=== PATIENT | male | born 1965 | race Caucasian/White ===

== ENCOUNTER → 2017-08-11 11:32 | Outpatient (CLI) | payer OTHER, SELFPAY ==
--- NOTE | 2017-08-11 11:56 | EKG12_ITS ---
Test Reason : PROP Blood Pressure : / mmHG Vent. Rate : 078 BPM Atrial Rate : 078 BPM P-R Int : 182 ms QRS Dur : 096 ms QT Int : 364 ms P-R-T Axes : -04 [phone] degrees QTc Int : 414 ms Normal sinus rhythm Normal ECG Confirmed by SALIMA LUIS, RU [id number]), online editor JANES WRAY ([id number] on 08/16/2017 8:30:41 AM Referred By: Hollis KELLY Confirmed By:RU BORREGO MD
[2017-08-11 13:04] LABS: Anion Gap 9 (5-15); BUN 20 mg/dL (7-18); BUN/Creat Ratio 18.5 RATIO (10-20); Calcium,Total 9.5 mg/dL (8.5-10.1); Chloride 100 mmol/L (98-107); Creatinine, Serum 1.08 mg/dL (0.70-1.30); EST Glomerular Filtration Rate 76 mL/min (>60); Est Glom Filt Rate - Afr Amer 92 mL/min (>60); Glucose 246 mg/dL (70-110); Potassium 4.4 mmol/L (3.5-5.1); Sodium Level 137 mmol/L (136-145)
== END ==
PROVIDERS: Family Provider Family Medicine; PCP Family Medicine; Visit Provider Orthopaedic Surgery
DX: Z01.812 Encounter for preprocedural laboratory examination (principal); I10 Essential (primary) hypertension; E11.9 Type 2 diabetes mellitus without complications; S83.241A Other tear of medial meniscus, current injury, right knee, initial encounter; X58.XXXA Exposure to other specified factors, initial encounter; Y93.9 Activity, unspecified; Y92.9 Unspecified place or not applicable; Y99.9 Unspecified external cause status
CPT/HCPCS: 36415; 80048; 93005

== ENCOUNTER → 2018-07-21 16:05 | Outpatient (CLI) | payer OTHER, SELFPAY ==
[2016-04-14 22:45] VITALS: BMI 41.4
[2018-07-21 18:15] LABS: AST(SGOT) 12 U/L (15-37); Alanine Aminotransfer ALT/SGPT 26 U/L (16-61); Alkaline Phosphatase 122 U/L (45-117); Anion Gap 10 (5-15); BUN 24 mg/dL (7-18); BUN/Creat Ratio 16.8 RATIO (10-20); Calcium,Total 9.3 mg/dL (8.5-10.1); Chloride 101 mmol/L (98-107); Cholesterol 173 mg/dL (200); Creatinine, Serum 1.43 mg/dL (0.70-1.30); EST Glomerular Filtration Rate 55 mL/min (>60); Est Glom Filt Rate - Afr Amer 66 mL/min (>60); Glucose 230 mg/dL (74-106); High Density Lipoprotein 48 mg/dL; Sodium Level 136 mmol/L (136-145); Triglycerides 252 mg/dL; Very Low Density Lipoprotein 50 mg/dL (5-40)
[2018-07-21 18:27] LABS: Microalbumin,Random Urine 5.9 mg/L (NO RANGE EST.); Microalbumin:Creatinine Ratio 23.3 mg/g CRE (<30 mg/g CRE)
== END ==
PROVIDERS: Family Provider Family Medicine; PCP Family Medicine; Visit Provider Family Medicine
DX: E11.9 Type 2 diabetes mellitus without complications (principal)
CPT/HCPCS: 36415; 80048; 80061; 80076; 82043; 82570

== ENCOUNTER → 2019-10-29 09:40 | Outpatient (CLI) | payer OTHER, SELFPAY ==
[2016-04-14 22:45] VITALS: BMI 41.4
[2019-10-29 12:15] LABS: AST(SGOT) 18 U/L (15-37); Alanine Aminotransfer ALT/SGPT 27 U/L (16-61); Albumin, Serum 3.5 g/dL (3.2-5.0); Alkaline Phosphatase 109 U/L (45-117); Anion Gap 7 (5-15); BUN 23 mg/dL (7-18); BUN/Creat Ratio 19.5 RATIO (10-20); Bilirubin, Direct 0.17 mg/dL (0.00-0.30); Calcium,Total 9.9 mg/dL (8.5-10.1); Chloride 102 mmol/L (98-107); Cholesterol 138 mg/dL (200); Creatinine, Serum 1.18 mg/dL (0.70-1.30); EST Glomerular Filtration Rate 68 mL/min (>60); Est Glom Filt Rate - Afr Amer 82 mL/min (>60); Globulin 3.3 g/dL (2.2-4.2); Glucose 318 mg/dL (74-106); High Density Lipoprotein 39 mg/dL; Potassium 3.6 mmol/L (3.5-5.1); Protein, Total 6.8 g/dL (6.4-8.2); Sodium Level 137 mmol/L (136-145); Triglycerides 221 mg/dL; Very Low Density Lipoprotein 44 mg/dL (5-40)
== END ==
PROVIDERS: PCP Family Medicine; Referring Provider Family Medicine; Visit Provider Family Medicine
DX: E11.9 Type 2 diabetes mellitus without complications (principal)
CPT/HCPCS: 36415; 80048; 80061; 80076

== ENCOUNTER → 2020-08-04 15:00 | Outpatient (CLI) | payer OTHER, SELFPAY ==
[2020-08-04 11:04] VITALS: BMI 43.7
[2020-08-04 18:22] LABS: AST(SGOT) 16 U/L (15-37); Alanine Aminotransfer ALT/SGPT 25 U/L (16-61); Anion Gap 6 (5-15); BUN 21 mg/dL (7-18); BUN/Creat Ratio 16.4 RATIO (10-20); Calcium,Total 9.3 mg/dL (8.5-10.1); Chloride 100 mmol/L (98-107); Cholesterol 174 mg/dL (200); Creatinine, Serum 1.28 mg/dL (0.70-1.30); EST Glomerular Filtration Rate 62 mL/min (>60); Est Glom Filt Rate - Afr Amer 75 mL/min (>60); Glucose 219 mg/dL (74-106); High Density Lipoprotein 54 mg/dL; Potassium 3.9 mmol/L (3.5-5.1); Sodium Level 134 mmol/L (136-145); Triglycerides 142 mg/dL; Very Low Density Lipoprotein 28 mg/dL (5-40)
== END ==
PROVIDERS: PCP Family Medicine; Visit Provider Family Medicine
DX: I10 Essential (primary) hypertension (principal); E78.5 Hyperlipidemia, unspecified
CPT/HCPCS: 36415; 80048; 80061; 84450; 84460

== ENCOUNTER → 2021-06-26 14:13 | Outpatient (CLI) | payer OTHER, SELFPAY ==
[2021-06-26 18:04] LABS: AST(SGOT) 16 U/L (15-37); Alanine Aminotransfer ALT/SGPT 26 U/L (16-61); Anion Gap 4 (5-15); BUN 28 mg/dL (7-18); BUN/Creat Ratio 20.4 RATIO (10-20); Calcium,Total 9.7 mg/dL (8.5-10.1); Chloride 104 mmol/L (98-107); Cholesterol 163 mg/dL (200); Creatinine, Serum 1.37 mg/dL (0.70-1.30); EST Glomerular Filtration Rate 57 mL/min (>60); Est Glom Filt Rate - Afr Amer 69 mL/min (>60); Glucose 242 mg/dL (74-106); High Density Lipoprotein 47 mg/dL; Potassium 3.9 mmol/L (3.5-5.1); Sodium Level 139 mmol/L (136-145); Triglycerides 140 mg/dL; Very Low Density Lipoprotein 28 mg/dL (5-40)
== END ==
PROVIDERS: PCP Family Medicine; Referring Provider Family Medicine; Visit Provider Family Medicine
DX: I10 Essential (primary) hypertension (principal); E78.5 Hyperlipidemia, unspecified
CPT/HCPCS: 36415; 80048; 80061; 84450; 84460

== ENCOUNTER → 2022-01-26 | Outpatient (CLI) | payer OTHER, SELFPAY ==
[2022-01-26 19:07] LABS: PSA,Total - Annual Screen 0.93 ng/mL (0.00-4.00)
== END | disposition home or self-care (01) ==
LOC: MFPLAB 16:19
PROVIDERS: PCP Family Medicine; Visit Provider Family Medicine
DX: Z00.00 Encounter for general adult medical examination without abnormal findings (principal)
CPT/HCPCS: 36415; 84153; G0103

== ENCOUNTER → 2022-07-26 | Outpatient (CLI) | payer OTHER, SELFPAY ==
[2022-07-26 18:54] LABS: Microalbumin,Random Urine 79.8 mg/L (NO RANGE EST.); Microalbumin:Creatinine Ratio 89.3 mg/g CRE (<30 mg/g CRE)
[2022-07-26 19:38] LABS: Anion Gap 8 (5-15); BUN 28 mg/dL (7-18); BUN/Creat Ratio 21.4 RATIO (10-20); Calcium,Total 9.6 mg/dL (8.5-10.1); Chloride 103 mmol/L (98-107); Cholesterol 164 mg/dL (200); Creatinine, Serum 1.31 mg/dL (0.70-1.30); EST Glomerular Filtration Rate 60 mL/min (>60); Est Glom Filt Rate - Afr Amer 72 mL/min (>60); Glucose 225 mg/dL (74-106); High Density Lipoprotein 51 mg/dL; Potassium 4.1 mmol/L (3.5-5.1); Sodium Level 140 mmol/L (136-145); Triglycerides 141 mg/dL; Very Low Density Lipoprotein 28 mg/dL (5-40)
== END | disposition home or self-care (01) ==
LOC: MFPLAB 16:02
PROVIDERS: PCP Family Medicine; Visit Provider Family Medicine
DX: I10 Essential (primary) hypertension (principal); E11.9 Type 2 diabetes mellitus without complications; E78.5 Hyperlipidemia, unspecified
CPT/HCPCS: 36415; 80048; 80061; 82043; 82570

== ENCOUNTER 2023-04-29 13:54 | Outpatient (CLI) | payer OTHER, SELFPAY ==
[2023-04-29 16:36] LABS: AST(SGOT) 10 U/L (15-37); Alanine Aminotransfer ALT/SGPT 23 U/L (16-61); Cholesterol 140 mg/dL (200); High Density Lipoprotein 48 mg/dL; PSA,Total - Annual Screen 1.28 ng/mL (0.00-4.00); Triglycerides 128 mg/dL; Very Low Density Lipoprotein 26 mg/dL (5-40)
== END 2023-04-29 23:59 | disposition home or self-care (01) ==
LOC: MFPLAB 13:55
PROVIDERS: PCP Family Medicine; Visit Provider Family Medicine
DX: Z12.5 Encounter for screening for malignant neoplasm of prostate (principal); E78.5 Hyperlipidemia, unspecified
CPT/HCPCS: 36415; 80061; 84153; 84450; 84460; G0103

== ENCOUNTER → 2023-08-26 | Outpatient (CLI) | payer OTHER, SELFPAY ==
[2023-08-26 17:02] LABS: Microalbumin,Random Urine 58.5 mg/L (NO RANGE EST.); Microalbumin:Creatinine Ratio 26.5 mg/g CRE (<30 mg/g CRE)
[2023-08-26 17:33] LABS: Vitamin D,25 Hydroxy 38.6 ng/mL
--- OUTSIDE RECORDS SUMMARY | 2023-08-26 17:35 | XMS RPT_ITS | CCD ---
Author Name Unknown Address [address] [place] [address] Organization [facility] Care Team Providers Care [employer] Worker Name Role Phone Debra Covington Primary Care Provider JELANI JAMISON Referring Unavailable DEBRA COVINGTON Primary Care Unavailable Allergies Allergy Classification Reported Allergen(s) Allergy Type Date of Onset Reaction(s) Facility (6 sources) Acetaminophen / HYDROcodone; Translations: [HYDROCODONE-ACETA MINOPHEN] Drug Allergy 2 Other: See Comments [facility] (6 sources) Acetaminophen / oxyCODONE; Translations: [OXYCODONE-ACETAMI NOPHEN] Drug Allergy 2 Other: See Comments [facility] (6 sources) Ramipril; Translations: [RAMIPRIL] Drug Allergy 2 Cough [facility] Medications Completed/Discontinued Medications Medication Drug Class(es) Dates Sig (Normalized) Sig (Original) aspirin 81 mg delayed release oral tablet (5 sources) Platelet Aggregation Inhibitor, Nonsteroidal Anti-inflammatory Drug take 1 tablet by mouth once daily aspirin, enteric coated (ASPIRIN, ENTERIC COATED) 81 mg EC tablet Take 81 mg by mouth once daily. 0 Active Problems Problem Classification Problem Date Documented Da te Episodic/Chronic Diabetes mellitus with complications (1 source) Type 2 diabetes mellitus; Translations: [Type 2 diabetes mellitus with other specified complication] Chronic Diabetes mellitus without complication (5 sources) Diabetes mellitus; Translations: [Type 2 diabetes mellitus without complications] 01-06-2022 Chronic Disorders of lipid metabolism (6 sources) Hyperlipidemia; Translations: [Hyperlipidemia, unspecified] Chronic Essential hypertension (6 sources) Hypertensive disorder; Translations: [Essential (primary) hypertension] Chronic Other diseases of kidney and ureters (6 sources) Abnormal renal function; Translations: [Disorder of kidney and ureter, unspecified] Episodic Other nutritional; endocrine; and metabolic disorders (6 sources) Morbid obesity; Translations: [Morbid (severe) obesity due to excess calories] Chronic Other screening for suspected conditions (not mental disorders or infectious disease) (4 sources) Patient encounter status; Translations: [Encounter for screening for malignant neoplasm of colon] Episodic Residual codes; unclassified (6 sources) Obstructive sleep apnea syndrome; Translations: [Obstructive sleep apnea (adult) (pediatric)] Chronic Results Test Name Value Interpretation Reference Range Facil ity Vital Signs Date Time Vital Sign Value Performing Clinician Faci lity 01-20-2022 09:00-0400 Diastolic blood pressure 71 mm[Hg] Jelani Jamison MD Work Phone: [facility] 01-20-2022 09:00-0400 Heart rate 81 /min Jelani Jamison MD Work Phone: [facility] 01-20-2022 09:00-0400 Respiratory rate 15 /min Jelani Jamison MD Work Phone: [facility] 01-20-2022 09:00-0400 SaO2% (BldA) [Mass fraction] 95 % Jelani Jamison MD Work Phone: [facility] 01-20-2022 09:00-0400 Systolic blood pressure 153 mm[Hg] Jelani Jamison MD Work Phone: [facility] 01-20-2022 08:30-0400 Body temperature 98.2 [degF] Jelani Jamison MD Work Phone: [facility] 01-06-2022 11:11-0400 Body height 180.3 cm Pacc 1 Work Phone: [facility] 01-06-2022 11:11-0400 Body temperature 98.01 [degF] Pacc 1 Work Phone: [facility] 01-06-2022 11:11-0400 Body weight 151.5 kg Pacc 1 Work Phone: [facility] 01-06-2022 11:11-0400 Diastolic blood pressure 88 mm[Hg] Pacc 1 Work Phone: [facility] 01-06-2022 11:11-0400 Heart rate 80 /min Pacc 1 Work Phone: [facility] 01-06-2022 11:11-0400 Respiratory rate 16 /min Pacc 1 Work Phone: [facility] 01-06-2022 11:11-0400 SaO2% (BldA) [Mass fraction] 97 % Pacc 1 Work Phone: [facility] 01-06-2022 11:11-0400 Systolic blood pressure 164 mm[Hg] Pacc 1 Work Phone: [facility] Encounters Encounter Date Encounter Type Care Provider Facility Start: 01-26-2022 Telephone encounter Jelani bell MD Work Phone: General Surgery Procedures Date Procedure Procedure Detail Performing Clinician Start: 01-20-2022 Gluc bld gluc mntr d ev cleared fda spec home use Marybel Kandrac DIRECTOR WRITING.EMPLOYEE COMMUNICATIONS INTERN Work Phone: Start: 01-20-2022 Colon ca scrn not hi rsk ind Jelani Jamison MD Work Phone: Start: 01-20-2022 Gluc bld gluc mntr d ev cleared fda spec home use Marybel Kandrac DIRECTOR WRITING.EMPLOYEE COMMUNICATIONS INTERN Work Phone: Start: 01-20-2022 Colonoscopy Jelani celestin MD Work Phone: Plan of Treatment Date Care Activity Detail Author Start: 01-21-2032 Colonoscopy COLONOSCOPY [facility] Start: 01-21-2032 COLORECTAL CANCER SCREENING COLORECTAL CANCER SCREENING [facility] Start: 03-11-2023 Influenza vaccination INFLUENZA (Season Ended) [facility] Start: 01-20-2023 Colonoscopy COLONOSCOPY [facility] Start: 01-20-2023 COLORECTAL CANCER SCREENING COLORECTAL CANCER SCREENING [facility] Start: 07-11-2022 DEPRESSION ASSESSMENT DEPRESSION ASSESSMENT [facility] Start: 03-11-2022 Influenza vaccination INFLUENZA (#1) [facility] Start: 09-11-2021 COVID-19 VACCINE (4 - Booster for Pfizer series) COVID-19 VACCINE (4 - Booster for Pfizer series) [facility] Start: 07-09-2021 COVID-19 VACCINE (4 - Booster for Pfizer series) COVID-19 VACCINE (4 - Booster for Pfizer series) [facility] Start: 02-25-2019 PROSTATE CANCER SCREENING DISCUSSION PROSTATE CANCER SCREENING DISCUSSION [facility] Start: 02-25-2014 SHINGRIX VACCINE (1 of 2) SHINGRIX VACCINE (1 of 2) [facility] Start: 02-25-2009 COLOGUARD (FIT-DNA) COLOGUARD (FIT-DNA) [facility] Start: 02-25-2009 Colonoscopy COLONOSCOPY [facility] Start: 02-25-2009 COLORECTAL CANCER SCREENING COLORECTAL CANCER SCREENING [facility] Start: 02-25-[address] COLONOGRAPHY [facility] Start: 02-25-2009 FECAL OCCULT BLOOD FECAL OCCULT BLOOD [facility] Start: 02-25-2009 SIGMOIDOSCOPY SIGMOIDOSCOPY [facility] Start: 02-25-1983 HEPATITIS B (1 of 3 - Risk 3-dose series) HEPATITIS B (1 of 3 - Risk 3-dose series) [facility] Start: 02-25-1983 Urine microalbumin profile DTAP,TDAP,TD (1 - Tdap) [facility] Start: 02-25-1982 ANNUAL PCP TEAM CHRONIC DISEASE VISIT ANNUAL PCP TEAM CHRONIC DISEASE VISIT [facility] Start: 02-25-1982 BP CONTROLLED (<130/80) BP CONTROLLED (<130/80) [facility] Start: 02-25-1982 Hepatitis B surface antibody level LDL CHOLESTEROL [facility] Start: 02-25-1982 HEPATITIS C SCREENING HEPATITIS C SCREENING [facility] Start: 02-25-1982 HIV SCREENING HIV SCREENING [facility] Start: 1976 Adult depression screening assessment DEPRESSION SCREENING [facility] Start: 02-25-1974 3 comp foot exam completed DIABETIC FOOT EXAM [facility] Start: 02-25-1974 Hepatitis B screening URINE ALBUMIN:CREATININE RATIO [facility] Start: 02-25-1974 Hepatitis C antibody, confirmatory test DILATED RETINAL EXAM [facility] Start: 02-25-1970 PNEUMOCOCCAL (1 - PCV) PNEUMOCOCCAL (1 - PCV) [facility] Start: 02-25-1969 Hemoglobin A1c/Hemoglobin.total in Blood HBA1C [facility] Start: 1964 HEPATITIS B (1 of 3 - 3-dose series) HEPATITIS B (1 of 3 - 3-dose series) [facility] End: 01-07-2023 COLONOSCOPY DIAGNOSTIC COLONOSCOPY DIAGNOSTIC Endoscopy Routine Screening for colon cancer 1 Occurrences starting 01/07/2022 until 01/07/2023 [facility] Work Phone: Payers Date Payer Category Payer Private Health Insurance [facility] [employer] [id number] 2021-Present [phone] [address] [address] [place] [address] PPO [id number] 2021 Private Health Insurance [facility] CHO[employer] PLUS [id number] 2021-Present [phone] [address] [place] [address] HMO [id number] 2021 Private Health Insurance [id number] Social History Date Type Detail Facility Start: 12-03-2016 End: 01-06-2022 Tobacco smoking status NHIS Never smoked tobacco [facility] Work Phone: Start: 12-03-2016 End: 01-06-2022 Tobacco use and exposure Former smokeless tobacco user [facility] Work Phone: End: 01-07-2016 History of tobacco use User of smokeless tobacco [facility] Work Phone: Start: 10-20-2021 End: 01-06-2022 Alcohol intake Current non-drinker of alcohol (finding) [facility] Start: 1965 Sex Assigned At Not on file C [facility] Start: 12-27-2021 End: 01-20-2022 Exposure to SARS-CoV-2 (event) Not sure [facility] Clinical Notes 11-12-2021 to 01-27-2022 Telephone Encounter - Tosin Cortez PA-C - 01/27/2022 9:25 AM EDTTelephone Encounter - Miriam Tovar - 01/26/2022 5:14 PM Antoine Jamison MD - 01/20/2022 8:15 AM EDTPatient Instructions Note Date & Type Note Facility 01-27-2022 Miscellaneous Notes Formattin g of this note might be different from the original. This is correct. The patient had a normal colonoscopy with no biopsies taken, so no post-op visit required. He does however need Health Maintenance and surgical history updated in [facility], and a recall letter placed for 10 year repeat colonoscopy. Encounter forwarded to [facility] to update chart Pt canceled post op appointment with Tosin Cortez. He thought that Dr. Jamison had given him all the information after the colonoscopy so he did not need it. Let him know if he should r/s. documented in this encounter [facility] 01-20-2022 History and physi mejia note Images from the original note were not included. HISTORY AND PHYSICAL David Sutton 1965 REFERRING PHYSICIAN: Debra Covington MD CHIEF COMPLAINT: Consult (colonoscopy) HPI: The patient is a 56 year old male referred for endoscopy. David notes no history of colon complaints. The patient notes no history of upper GI complaints. David has not undergone prior endoscopy. The patient is being seen by me today at the request of Dr. Debra Covington MD for my opinion and advice regarding Encounter for screening for malignant neoplasm of colon (primary encounter diagnosis). PAST MEDICAL HISTORY PAST MEDICAL HISTORY Diagnosis Date Diabetes (HCC) Hyperlipemia Hypertension PAST SURGICAL HISTORY PAST SURGICAL HISTORY Procedure Laterality Date PAST SURGICAL HISTORY OF Bilateral 2016 quad tenden repair PAST SURGICAL HISTORY OF bicep repair on right side REPAIR EXTENSOR TENDON FINGER W/O GRAFT EACH Right ROTATOR CUFF REPAIR Bilateral CURRENT MEDICATIONS Current Outpatient Medications Medication Sig MULTIVITAMIN ORAL Take by mouth once daily. bromocriptine (CYCLOSET) 0.8 mg tablet Take 0.8 mg by mouth. 3 tabs daily pioglitazone HCl (PIOGLITAZONE ORAL) Take 30 mg by mouth once daily. glimepiride (AMARYL) 2 mg tablet Take 2 mg by mouth daily with breakfast. aspirin, enteric coated (ASPIRIN, ENTERIC COATED) 81 mg EC tablet Take 81 mg by mouth once daily. losartan (COZAAR) 100 mg tablet Take 100 mg by mouth once daily. metFORMIN (GLUCOPHAGE) 850 mg tablet Take 1,000 mg by mouth twice daily with meals. chlorthalidone (HYGROTON) 25 mg tablet Take 25 mg by mouth once daily. potassium chloride (K-TAB) 10 mEq tablet Take 10 mEq by mouth twice daily. atorvastatin (LIPITOR) 40 mg tablet Take 40 mg by mouth once daily. metoprolol tartrate, short acting, (LOPRESSOR) 100 mg tablet Take 100 mg by mouth twice daily. liraglutide (VICTOZA 2-LISA) 0.6 mg/0.1 mL (18 mg/3 mL) pnij Inject subcutaneously once daily. No current facility-administered medications for this visit. ALLERGIES: Altace [Ramipril], Percocet [Oxycodone-Acetaminophen], and Vicodin [Hydrocodone-Acetaminophen] PERSONAL HISTORY: SOCIAL HISTORY Social History Tobacco Use Smoking status: Never Smoker Smokeless tobacco: Former User Vaping Use Vaping Use: Never used Substance Use Topics Alcohol use: No Drug use: Never FAMILY HISTORY: FAMILY HISTORY FAMILY HISTORY Problem Relation Age of Onset Breast Cancer Mother other (bladder) Mother REVIEW OF SYMPTOMS: The review of systems data was entered by the nurse and reviewed by in Nursing Notes: Norma Layton LPN 10/20/2021 10:14 AM Signed REVIEW OF SYSTEMS: General: The patient denies fatigue, denies weight loss, denies weight gain, denies feeling hot, and denies feelings of cold. Eyes: The patient denies glaucoma, denies eye injury/surgery, wears glasses or contacts. Ear/Nose/Throat: The patient denies allergies, denies hayfever, denies ear infections, and denies bloody noses. Cardiovascular: The patient denies chest pain, denies heart disease, notes high blood pressure,denies cardiac stent, denies prior heart attack, denies irregular heart beat, notes high cholesterol, denies poor circulation, denies heart failure, other cardiac issues, denies claudication, denies cold feet, denies peripheral arterial stent. Respiratory: The patient denies tuberculosis, denies pneumonia, denies frequent cough, denies pulmonary embolism, denies shortness of breath, and denies coughing up blood. Gastrointestinal: The patient denies difficulty swallowing, denies acid reflux, denies ulcers, denies vomiting, denies jaundice/hepatitis, denies gallbladder problems, denies black or tarry stools, denies hemorrhoids, denies bleeding from rectum, denies diverticulitis, denies constipation, denies diarrhea, denies loss of stool control, and denies hernias. Kidney/Bladder: The patient denies kidney stones, denies urine infections, and denies bloody urine. Skin: The patient denies a history of skin cancer, denies bleeding/changing moles, and denies a history of skin rash. Neurologic: The patient denies a history of epilepsy/convulsions, denies headaches, denies head/spinal injuries, and denies stroke/TIA. Psychiatric: The patient denies psychiatric medications, denies depression, and denies voices, denies substance abuse. Endocrine: The patient denies thyroid disorders, notes diabetes, and denies hormonal problems. Hematologic: The patient denies a history of bruising, denies bleeding, and denies anemia, denies blood clots. Infections: The patient denies a history of measles and mumps, denies rheumatic fever, and denies sexually transmitted diseases. Musculoskeletal: The patient denies back pain/injury, denies back problems, denies sciatica, notes knee/foot trouble, denies arthritis, or denies gout. When was patient's last Mammogram screening? N/A Last Colonoscopy: None Norma Layton LPN PHYSICAL EXAMINATION: General: The patient is 56 year old male, well nourished, well hydrated in no acute distress. The patient is oriented to time, place, and person. VITALS: Blood pressure 154/90, pulse 79, temperature 36.5 C (97.7 F), height 182.9 cm (6'), weight (!) 154.7 kg (341 lb), SpO2 95 %. Body mass index is 46.25 kg/m . HEENT: Normal cephalic, ataumatic, pupils are equally round, sclera are anicteric, mucous membranes are moist, oropharynx is clear. Neck has no masses, asymmetry or lymphadenopathy. Thyroid is unremarkable. Respiratory: Clear to auscultation and percussion. Normal respiratory excursion and pattern. Cardiac: Examination is regular rate and rhythm. Abdominal exam: Soft, nontender, with no palpable masses. No hepatosplenomegaly. No palpable hernias. Rectal exam: exam deferred Extremities: no clubbing, cyanosis or edema. No adenopathy. Other: LABORATORY VALUES: As Noted RADIOLOGIC STUDIES: As Noted Assessment IMPRESSION: Encounter for screening for malignant neoplasm of colon (primary encounter diagnosis) PLAN: I plan to perform lower endoscopy. We discussed the risks and benefits of the planned endoscopy. I have informed the patient that complications can occur including failure to complete the endoscopy and perforation. The patient had the opportunity to ask questions concerning the planned endoscopy. My staff has also explained the procedure to the patient in understandable terms and has given the patient printed material concerning the procedure. The patient freely consents to surgery. I plan to use golytely bowel preparation for endoscopy Diagnoses: (Z12.11) Encounter for screening for malignant neoplasm of colon (primary encounter diagnosis) A letter was sent to Dr. Debra Covington MD indicating the above finding for this patient. Return to Clinic: The patient is instructed to follow-up with me 1 week post operatively. Jelani Jamison III, MD UPDATED HISTORY AND PHYSICAL EXAMINATION SERVICE DATE: 01/20/2022 SERVICE TIME: 7:58 AM PHYSICAL EXAM MUST BE COMPLETED ON ADMISSION The History and Physical (completed in the past 30 days) has been reviewed and the patient has been examined. The contents accurately reflect the patient's condition with the following additions or revisions since the H&P was completed. Examination indicates no changes. This H&P can be found in the attached. SIGNATURE: Jelani Jamison III, MD PATIENT NAME: David Sutton DATE: January 20, 2022 TIME: 7:58 AM documented in this encounter [facility] 01-07-2022 Instructions Jelani Jamison MD - 01/07/2022 1:05 PM EDT Images from the original note were not included. Bowel Preparation Instructions for: Golytely, Nulytely, Trilyte or Colyte (polyethylene glycol 3350 and electrolytes) IF YOU DO NOT FOLLOW THESE DIRECTIONS, YOUR COLONOSCOPY WILL BE CANCELLED. Bales Instructions: Your bowel must be empty so that your doctor can clearly view your colon. Follow all of the instructions in this handout EXACTLY as they are written. Do NOT eat any solid food the ENTIRE day before your colonoscopy. Drink only clear liquids. Buy your bowel preparation at least 5 days before your colonoscopy. TRANSPORTATION on the Day of Your Exam A responsible person MUST be present with you at Check In prior to your colonoscopy and REMAIN in the endoscopy area until you are discharged. You are NOT ALLOWED to drive, take a taxi or bus, or leave the Endoscopy Center ALONE. If you do not have a responsible pickup driver (family member or friend) with you to take you home, your exam cannot be done with sedation and will be cancelled. Please bring a list of all of your current medications, including any Over-the Counter medications with you. Medications If you take insulin, diabetic medications or blood thinners such as Coumadin (warfarin), Plavix (clopidogrel), Ticlid (ticlopidine hydrochloride), Agrylin (anagrelide), Xarelto (Rivaroxaban), Pradaxa (Dabigatran), Eliquis (Apixaban), and Effient (Prasugrel). You MUST call the doctors who orders those medicines for instructions on altering the dosage before your colonoscopy. All other medications should be taken the day of the exam with a sip of water including ASPIRIN. Five (5) Days Before Your Colonoscopy Do NOT take medicines that stop diarrhea - such as Imodium, Kaopectate, or Pepto Bismol. Do NOT take fiber supplements - such as Metamucil, Citrucel, or Perdiem. Do NOT take products that contain iron - such as multi-vitamins (the label lists what is in the products). Do NOT take Vitamin E. Buy the prescription bowel preparation solution at your local pharmacy or drugstore pharmacy. 06/2019 Bowel Preparation Instructions for: Golytely, Nulytely, Trilyte or Colyte (polyethylene glycol 3350 and electrolytes) Three (3) Days Before Your Colonoscopy Do NOT eat high-fiber foods - such as popcorn, beans, seeds (flax, sunflower, quinoa), multigrain bread, nuts, salad/vegetables, or fresh and dried fruit. One (1) Day Before Your Colonoscopy Only drink clear liquids the ENTIRE DAY before your colonoscopy. Do NOT eat any solid foods. Drink at least 8 ounces of clear liquids every hour after waking up. The clear liquids you can drink include: Clear Liquid (NO RED LIQUIDS) DO NOT DRINK Gatorade, Pedialyte or Powerade Clear broth or bouillon Coffee or tea (no milk or non-dairy creamer) Carbonated and non-carbonated soft drinks Jose Miguel-Aid or other fruit flavored drinks Strained fruit juices (no pulp) Jell-O, popsicles, hard candy Water Alcohol Milk or non-dairy creamers Noodles or vegetables in soup Juice with pulp Liquid you cannot see through The bowel preparation solution will be consumed in two parts. Mix the solution the evening before your colonoscopy and refrigerate before drinking. You may add the flavor pack that came with the bowel preparation. Do NOT add ice, sugar or any other flavorings to the solution. Part 1 At 6:00 PM - Evening before your colonoscopy Drink an 8-oz glass of bowel preparation every 10 minutes for a total of 8 glasses. You may continue to drink clear liquids until midnight. Part 2 On the day of your colonoscopy you may drink clear liquids up to (three) 3 hours before your procedure. 4 1/2 hours before your colonoscopy Drink an 8-oz glass of bowel preparation every 10 minutes for a total of 8 glasses. Fifteen (15) minutes later, drink an 8-oz glass of clear liquids every 15 minutes for a total of 2 glasses. You may continue to drink clear liquids up to (three) 3 hours before your exam. 3 06/2019 documented in this encounter [facility] 01-07-2022 Miscellaneous Notes prep sent Patient scheduled for colonoscopy with Shaheen in [place] on 01/20 Patients prep Rabialy was never sent to his pharmacy on file. Can we please send patients prep [facility] [place] Please and thank you Rachael documented in this encounter [facility] 01-06-2022 History and physi mejia note HISTORY AND PHYSICAL EXAMINATION SERVICE DATE: 01/06/2022 SERVICE TIME: 11:22 AM PRIMARY CARE PHYSICIAN: Debra Covington MD REASON FOR VISIT: David Sutton is a 56 year old male who is scheduled for colonoscopy at the request of Dr. Jelani Jamison for consultation. My final recommendation will be communicated back to the requesting physician by way of shared medical record or letter. Subjective The patient has the following: ACTIVE PROBLEM LIST Diabetes (Hcc) Abnormal Kidney Function Alexander (Obstructive Sleep Apnea) Hyperlipemia Hypertension Morbidly Obese (Hcc) COVID-19 Immunization Status Overdue - COVID-19 VACCINE (4 - Booster for Pfizer series) Overdue since 09/11/2021 05/14/2021 Imm Admin: COVID-19 vaccine, age 12+ yr (PFIZER-BIONTECH - PURPLE TOP) 10/23/2020 Imm Admin: COVID-19 vaccine, age 12+ yr (PFIZER-BIONTECH - PURPLE TOP) 09/29/2020 Imm Admin: COVID-19 vaccine, age 12+ yr (PFIZER-BIONTECH - PURPLE TOP) CHIEF COMPLAINT: Pre-Op Exam HPI: 56 year old male presents with need for colon cancer screening. This will be the patient's first colonoscopy. He denies any family history of colon cancer. He also denies abdominal pain, nausea, vomiting, constipation, diarrhea, blood in the stool, changes in bowel habits, GERD, dysphagia, IBS, IBD, diverticulitis or liver disease. REVIEW OF SYSTEMS: General: No weight loss, malaise or fevers. Neurological: No history of TIA's, stroke, [employer]CH[employer]AT[employer] tumor, impaired sensorium, hemiplegia, paraplegia or quadraplegia. No neurological symptoms or problems. Respiratory: Positive for: obstructive sleep apnea (using CPAP). Negative for: asthma, bronchitis, COPD, current cough, dyspnea, home oxygen, orthopnea and pneumonia within 6 weeks. Cardiovascular: Positive for: hyperlipidemia (on Rx) and hypertension (on Rx) Negative for: arrhythmia, atrial fibrillation, CAD, chest pain, CHF, DVT/PE, recent GA and murmur/valvular heart disease. GI: See HPI. : (+) Abnormal kidney function Positive for: nocturia >1 time per night. Negative for: dysuria, frequent urination, hematuria, nephrolithiasis, renal failure and urgency. Endocrine: Positive for: diabetes mellitus (Oral medication, Victoza. Checks glucose 1-2 x day, 130-145). Negative for: hyperthyroidism and hypothyroidism. Hematology: No history of bleeding or clotting disorder. Patient is not taking anti-coagulation or platelet medications. No history of hematological symptoms or problems. Oncology: No history of CA metastasis, chemo within 30 days, or radiotherapy within 90 days. No history of oncological symptoms or problems. Psych: No history of psychiatric symptoms or problems. Musculoskeletal: Negative for joint pain or swelling, back pain or muscle pain. Skin: Negative for lesions, rash and itching. PAST MEDICAL HISTORY Diagnosis Date Diabetes (HCC) Hyperlipemia Hypertension ALEXANDER (obstructive sleep apnea) PAST SURGICAL HISTORY Procedure Laterality Date REPAIR BICEPS LONG TENDON Right REPAIR EXTENSOR TENDON FINGER W/O GRAFT EACH Right REVISION QUADRICEPS Bilateral 2016 ROTATOR CUFF REPAIR Bilateral FAMILY HISTORY Problem Relation Age of Onset Breast Cancer Mother other (Bladder Cancer) Mother Heart Attack Father Social History Tobacco Use Smoking status: Never Smoker Smokeless tobacco: Former User Vaping Use Vaping Use: Never used Substance Use Topics Alcohol use: No Drug use: Never Prior to Admission medications as of 01/06/22 1133 Medication Sig Last Dose Taking chlorthalidone (HYGROTON) 50 mg tablet Take 1 tablet by mouth once daily. Taking Yes metFORMIN (GLUCOPHAGE) 1,000 mg tablet Take 1 tablet by mouth twice daily. Taking Yes CPAP Taking Yes MULTIVITAMIN ORAL Take by mouth once daily. Taking Yes bromocriptine (CYCLOSET) 0.8 mg tablet Take 2.4 mg by mouth once daily. Taking Yes pioglitazone HCl (PIOGLITAZONE ORAL) Take 30 mg by mouth once daily. Taking Yes glimepiride (AMARYL) 2 mg tablet Take 4 mg by mouth daily with breakfast. Taking Yes aspirin, enteric coated (ASPIRIN, ENTERIC COATED) 81 mg EC tablet Take 81 mg by mouth once daily. Taking Yes losartan (COZAAR) 100 mg tablet Take 100 mg by mouth once daily. Taking Yes potassium chloride (K-TAB) 10 mEq tablet Take 20 mEq by mouth once daily. Taking Yes atorvastatin (LIPITOR) 40 mg tablet Take 40 mg by mouth once daily. Taking Yes metoprolol tartrate, short acting, (LOPRESSOR) 100 mg tablet Take 100 mg by mouth twice daily. Taking Yes liraglutide (VICTOZA 2-LISA) 0.6 mg/0.1 mL (18 mg/3 mL) pnij Inject 0.6 mg subcutaneously once daily. Taking Yes No medication comments found. ALLERGIES Allergen Reactions Altace [Ramipril] Cough Percocet [Oxycodone* Other: See Comments Vicodin [Hydrocodon* Other: See Comments min Objective PHYSICAL EXAM: General: alert and oriented and morbidly obese. Pertinent negatives noted - not distressed. Skin: normal color, no rash or lesions. HEENT: pupils equal round and pupils reactive to light. Pertinent negatives noted - no carotid bruit. Cardiovascular: regular rate and rhythm, normal S1 and S2, no rub, murmurs, or gallop. Respiratory: normal breath sounds, no wheezes or crackles. No chest wall deformity or tenderness. Abdomen: bowel sounds present and soft. Pertinent negatives noted - no hernia, no mass, not rigid and not tender. Extremities: Positive for edema (BLE, pitting, trace). Neurological: normal cognition and motor skills. Gait normal. No weakness or sensory deficit. PAIN ASSESSMENT: VITALS: BP 164/88 Pulse 80 Temp (Src) 98 (Temporal) Resp 16 Ht 5' 11 (1.80m) Wt 334 lb (151.5kg) SpO2 97% BMI 46.60 kg/(m^2). Diagnostic tests reviewed for today's visit: Lab Value Units Date High Low HB No results within date range. HCT No results within date range. WBC No results within date range. PLT No results within date range. NA No results within date range. K No results within date range. GLUC No results within date range. BUN No results within date range. CREAT No results within date range. PTSEC No results within date range. INR No results within date range. APTT No results within date range. ALT No results within date range. AST No results within date range. TBILI No results within date range. TSH No results within date range. Lab Value Units Date High Low HCGQT No results within date range. UHCG No results within date range. HCG, BODY* No results within date range. Lab Value Units Date High Low ABORHD No results within date range. ABSCREEN No results within date range. No results found for: HBA1C No results found for this or any previous visit (from the past 8760 hour(s)). No results found for this or any previous visit (from the past 25190 hour(s)). Assessment Diabetes (HCC) Assessment: Last HbA1C - 8.4 (12/2021). Following with endocrine. Oral medication, Victoza. Checks glucose 1-2 x day, avg 130-145. Abnormal kidney function Assessment: Last BUN - 28, Cr. - 1.37 & GFR - 57 (06/2021). ALEXANDER (obstructive sleep apnea) Assessment: Currently compliant with CPAP. Hyperlipemia Assessment: Compliant with Rx. Hypertension Assessment: Compliant with Rx. Last 3 Encounter BP Readings: Date: BP: 01/06/2022 164/88 10/20/2021 154/90 12/09/2016 164/88 Morbidly obese (HCC) Assessment: Body mass index is 46.58 kg/m . Amin Activity Status Index: METS: Climb a flight of stairs or walk up a hill (5.50 METs) DASI Score: 5.5 Patient denies any chest pain or undue shortness of breath with the above physical activity. Clinical Frailty Scale: 4. Apparently vulnerable STOP-Bang Score: STOP-Bang Score: (ALEXANDER using CPAP) [id number] Score: Age: <65 Sex: male CHF history: No Hypertension history: Yes Stroke/TIA/thromboembolism history: No Vascular disease history: No Diabetes history: Yes [id number] Score: 2 ASA Class: 3 ANESTHESIA FINDINGS: Intubation History: No history of difficult intubation. No abnormal airway history Significant Anesthesia Considerations: none Airway History: No history of difficult airway No abnormal airway history I - PHYSICAL EVALUATION AIRWAY Tracheostomy tube not present Mallampati: II. TM distance: <3 FB. Neck ROM: full ROM without neurological symptoms. Mouth opening: adequate. Short neck: yes. Thick neck: yes DENTAL Dental findings: teeth intact. II - ANESTHESIA PLAN ASA Score: 3 Anesthetic Plan: MAC Prepared for Surgery: optimally prepared for surgery, pending (see comment). DOS glucose CONSULTS: Patient does not require consults for optimization at this time Planned Anesthetic: MAC The Following Tests/Procedures Have Been Initiated: Orders Placed This Encounter chlorthalidone (HYGROTON) 50 mg tablet Sig: Take 1 tablet by mouth once daily. metFORMIN (GLUCOPHAGE) 1,000 mg tablet Sig: Take 1 tablet by mouth twice daily. CPAP Instructions Given to Patient: Instructions located in the after visit summary. Patient given verbal and written preop instructions and voices comprehension and compliance. SIGNATURE: Ellyn Mckinley APRN.CNP PATIENT NAME: David Sutton DATE: January 06, 2022 TIME: 11:22 AM PAGER/CONTACT #: documented in this encounter [facility] 01-06-2022 Instructions Ellyn Mckinley APRN.CNP - 01/06/2022 11:21 AM EDT PATIENT PREOPERATIVE INSTRUCTIONS Jelani Jamison MD has scheduled you for your procedure at this surgery center: [facility]: [phone] -- [address] [facility] [address]. Please read below carefully for your personalized instructions. Dietary Restrictions: - Nothing to eat or drink after midnight except for a sip of water with approved medications. - Do not drink any alcohol after midnight the night before your surgery. - Bowel prep instructions from Dr. Jamison Medications: Unless instructed differently below, stay on all of your medications until your surgery. Approved medications to take the morning of surgery with a sip of water: Lipitor and Metoprolol Take your evening medications the night before surgery as usual DO NOT TAKE YOUR Losartan THE NIGHT BEFORE OR MORNING OF SURGERY - No diabetic medication the morning of surgery. - Accucheck day of surgery. If you start any new medications after today's visit, please contact the surgeon's office. Blood Thinning Medications: - Stop NSAIDS (Ibuprofen, Advil, Aleve, Motrin, Celebrex, Mobic, etc.) 7 days before surgery, as directed by your surgeon. - Stop Aspirin 7 days before surgery, as directed by your surgeon. - Stop Vitamin E, ALL multi-vitamins, herbals and dietary supplements 7 days before surgery. - You may take Tylenol (Acetaminophen) or any of your pain medications that do not contain aspirin or NSAIDS as needed. Important Reminders: - If you use CPAP/BIPAP, bring the machine with you to the surgery center. - Candy, mints, and tobacco products are NOT permitted the morning of surgery. - Hearing aids, dentures and glasses may be worn the morning of surgery. - NO jewelry, body piercings, makeup, hairpins or contacts are to be worn the day of surgery. If you develop symptoms such as a fever, cold, or flu, or have other changes to your health within TWO DAYS of scheduled surgery or the morning of surgery, please contact the surgery center above. Personal Belongings: -Please have photo ID and insurance cards. -If you do not have a copy of advance directives on file with us, please bring a copy with you on the day of surgery. - Leave ALL valuables and money at home or with family members. For Outpatient Procedures: - YOU MUST HAVE A RESPONSIBLE ORCHARD PRUNER TAKE YOU HOME. A EDI DEVELOPER OR ADULT SCHOOL COUNSELOR CANNOT BE MADE A RESPONSIBLE ORCHARD PRUNER. - We recommend that a responsible person stays with you overnight to take care of you. - You cannot stay in a hotel alone after outpatient surgery. You will not be permitted to have your surgery, if you do not have someone to take care of you. Arrival Time for Surgery: - The Surgery Center or hospital where you are having surgery will call the afternoon before surgery (or Tuesday for Tuesday surgery) with a scheduled arrival time. - If you have not heard by 4 pm, please contact the surgery center above. Please be aware that emergency situations arise, which may delay or change your surgical time. If this happens, we will notify you as soon as possible and regret any inconvenience. If you already have an Advance Directive, please fax a copy to [phone] or email to for it to be added to your chart. If you do not have an Advance Directive, you can find the appropriate form and more information at [email or web address]. We recommend that you complete the Advance Directive form found on the website and bring it with you the day of your surgery. It can be witnessed and scanned into your chart that day. Ellyn Mckinley APRN.CNP documented in this encounter [facility] 11-12-2021 Miscellaneous Notes Patient's procedure was just added on for 01/20/2022. Called patient and spouse answered and per spouse patient not home. Per spouse call another number provided by spouse. Called that number and call went straight to voicemail and it's full. Unable to leave a message. [employer] message sent to patient as well. Please have patient call back at [phone]. Thank you! Luz Elena Lebron 01-20-2022 COLON SAVAGE documented in this encounter [facility] Screening for colon cancer Special screening for malignant neoplasms, colon [facility] Diagnosis Screening for colon cancer- Primary Special screening for malignant neoplasms, colon [facility] Diagnosis Screening for colon cancer- Primary Special screening for malignant neoplasms, colon [facility] Outpatient Procedure (Routine) - Closed Specialty Diagnoses / Procedures Referred By Contfrancisco t Referred To Contact Diagnoses Screening for colon cancer Procedures COLONOSCOPY SCREENING COLONOSCOPY FLX DX W/COLLJ SPEC WHEN Jelani Carter MD [address] [place] [address] [facility] [address] [phone] Referral ID Status Reason Start Date Expiration Date V isits Requested Visits Authorized [id number] Closed Auto-Generate d Referral 01/20/2022 04/20/2022 1 1 [facility] for referral (narrative)* Outpatient Procedure (Routine) - Closed Specialty Diagnoses / Procedures Referred By Contac t Referred To Contact Diagnoses Screening for colon cancer Procedures COLONOSCOPY SCREENING COLONOSCOPY FLX DX W/COLLJ SPEC WHEN Jelani Carter MD [address] [place] [address] [facility] [address] [place] [address] Referral ID Status Reason Start Date Expiration Date V isits Requested Visits Authorized [id number] Closed Auto-Generate d Referral 01/20/2022 04/20/2022 1 1 [facility] for referral (narrative)* Outpatient Procedure (Routine) - Pending Review Specialty Diagnoses / Procedures Referred By Contfrancisco t Referred To Contact [facility] Diagnoses Screening for colon cancer Procedures COLONOSCOPY DIAGNOSTIC COLONOSCOPY FLX DX W/COLLJ SPEC WHEN Jelani Carter MD [address] [place] [address] [facility] [address] [place] [address] Referral ID Status Reason Start Date Expiration Date Visits Requested Visits Authorized [id number] Pending Review Auto-Generat ed Referral 01/07/2022 01/07/2023 1 1 [facility] for visit Narrative* Outpatient Procedure (Routine) - Closed Specialty Diagnoses / Procedures Referred By Contfrancisco t Referred To Contact Diagnoses Screening for colon cancer Procedures COLONOSCOPY SCREENING COLONOSCOPY FLX DX W/COLLJ SPEC WHEN Jelani Carter MD [address] [facility] [address] [facility] [address] [place] [address] Referral ID Status Reason Start Date Expiration Date V isits Requested Visits Authorized [id number] Closed Auto-Generate d Referral 01/20/2022 04/20/2022 1 1 [facility] Advance Directives No Advanced Directives Records FoundDocuments on File Type Date Recorded Patient Top Flavor Attendant Expl anation Advance Directive(s) 12/22/2021 3:59 PM Documents on File Type Date Recorded Patient Top Flavor Attendant Expl anation Advance Directive(s) 01/20/2022 6:30 AM Advance Directive(s) 12/22/2021 3:59 PM Medications Administered Section Inactive Administered Medications - up to 3 most recent administrations Medication Order MAR Action Action Date Dose Rate Site lactated ringers iv infusion 30 mL/hr, INTRAVENOUS, CONTINUOUS, Starting on Tue01/20/22 at 0730, Until Tue01/20/22 at 0830, Preprocedure New Bag/Syringe/Bottle 01/20/2022 7:30 AM EDT 30 mL/hr 30 mL/hr Summary Purpose Family History No Family History Records FoundNo Family History Records Found Additional Source Comments Source Comments (unrecognize d section and content) In the event this informatio n is protected by the Federal Confidentiality of Alcohol and Drug Abuse Patient Records regulations: The Federal rules restrict any use of the information to criminally investigate or prosecute any alcohol or drug abuse patient.[facility] the event this information is protected by the Federal Confidentiality of Alcohol and Drug Abuse Patient Records regulations: The Federal rules restrict any use of the information to criminally investigate or prosecute any alcohol or drug abuse patient.[facility] the event this information is protected by the Federal Confidentiality of Alcohol and Drug Abuse Patient Records regulations: The Federal rules restrict any use of the information to criminally investigate or prosecute any alcohol or drug abuse patient.[facility] the event this information is protected by the Federal Confidentiality of Alcohol and Drug Abuse Patient Records regulations: The Federal rules restrict any use of the information to criminally investigate or prosecute any alcohol or drug abuse patient.[facility] the event this information is protected by the Federal Confidentiality of Alcohol and Drug Abuse Patient Records regulations: The Federal rules restrict any use of the information to criminally investigate or prosecute any alcohol or drug abuse patient.[facility] Reason for Visit (unrecogniz ed section and content) Specialty Diagnoses / Procedures Referred By Lars t Referred To Contact ANESTHESIOLOGY Diagnoses COLONOSCOPY SCREENING [21831] Procedures COLONOSCOPY SCREENING [18243] Jelani Jamison MD [address] [facility] [place] [address] [facility] [id number] [place] [id number] Referral ID Status Reason Start Date Expiration Date Visits Requested Visits Authorized [id number] Pending Review OON/Self Pay Override 11/16/2021 02/14/2022 1 1 Reason Comments 01-20-2022 COLON SAVAGE Reason Comments 01/20 colon savage Reason Comments Patient Question Care Teams (unrecognized sec tion and content) Casino Gaming Worker Relationship Specialty Start Date End Date Debra Covington PCP - General Family Practice 11/29/16 Casino Gaming Worker Relationship Specialty Start Date End Date Debra Covington PCP - General Family Practice 11/29/16 Casino Gaming Worker Relationship Specialty Start Date End Date Debra Covington PCP - General Family Practice 11/29/16 Casino Gaming Worker Relationship Specialty Start Date End Date Debra Covington PCP - General Family Medicine 11/29/16 (unrecognized sect ion and content) No Status Records FoundNo Status Records Found INFORMATION SOURCE (unrecogn ized section and content) DATE CREATED AUTHOR AUTHOR'S ORGANIZ ATION 12/25/2022 [facility] FOR RECORDS PERTAINING TO PATIENTS WHO ARE OR HAVE BEEN ENROLLED IN A CHEMICAL DEPENDENCY/SUBSTANCEABUSE PROGRAM, SOME INFORMATION MAY BE OMITTED. This clinical summary was aggregated from multiple sources. Caution should be exercised in using it in the provision of clinical care. This summary normalizes information from multiple sources, and as a consequence, information in this document may materially change the coding, format and clinical context of patient data. In addition, data may be omitted in some cases. CLINICAL DECISIONS SHOULD BE BASED ON THE PRIMARY CLINICAL RECORDS. [employer] provides no warranty or guarantee of the accuracy or completeness of information in this document.
[2023-08-26 17:41] LABS: ALB/GLOB Ratio 1.1 RATIO (0.9-2.4); AST(SGOT) 13 U/L (15-37); Alanine Aminotransfer ALT/SGPT 20 U/L (16-61); Albumin, Serum 3.7 g/dL (3.2-5.0); Alkaline Phosphatase 86 U/L (45-117); Anion Gap 4 (5-15); BUN 27 mg/dL (7-18); BUN/Creat Ratio 17.1 RATIO (10-20); Calcium,Total 9.6 mg/dL (8.5-10.1); Chloride 107 mmol/L (98-107); Cholesterol 155 mg/dL (200); Creatinine, Serum 1.58 mg/dL (0.70-1.30); EST Glomerular Filtration Rate 48 mL/min (>60); Est Glom Filt Rate - Afr Amer 58 mL/min (>60); Globulin 3.4 g/dL (2.2-4.2); Glucose 133 mg/dL (74-106); High Density Lipoprotein 49 mg/dL; Potassium 4.5 mmol/L (3.5-5.1); Protein, Total 7.1 g/dL (6.4-8.2); Sodium Level 139 mmol/L (136-145); Thyroid Stim Hormone (TSH) 1.08 uIU/mL (0.358-3.74); Triglycerides 144 mg/dL; Very Low Density Lipoprotein 29 mg/dL (5-40)
== END | disposition home or self-care (01) ==
LOC: LAB 16:01
PROVIDERS: PCP Family Medicine; Referring Provider Internal Medicine Endocrinology, Diabetes & Metabolism; Visit Provider Internal Medicine Endocrinology, Diabetes & Metabolism
DX: E11.9 Type 2 diabetes mellitus without complications (principal); E66.01 Morbid (severe) obesity due to excess calories; Z68.41 Body mass index [BMI] 40.0-44.9, adult; I10 Essential (primary) hypertension; E78.2 Mixed hyperlipidemia; E55.9 Vitamin D deficiency, unspecified
CPT/HCPCS: 36415; 80053; 80061; 82043; 82306; 82570; 84443

== ENCOUNTER → 2023-12-23 | Outpatient (CLI) | payer OTHER, SELFPAY ==
[2023-12-23 16:22] LABS: ALB/GLOB Ratio 1.2 RATIO (0.9-2.4); AST(SGOT) 18 U/L (15-37); Alanine Aminotransfer ALT/SGPT 27 U/L (16-61); Albumin, Serum 3.7 g/dL (3.2-5.0); Alkaline Phosphatase 90 U/L (45-117); Anion Gap 7 (5-15); BUN 42 mg/dL (7-18); Calcium,Total 9.7 mg/dL (8.5-10.1); Chloride 104 mmol/L (98-107); Creatinine, Serum 1.45 mg/dL (0.70-1.30); EST Glomerular Filtration Rate 53 mL/min (>60); Est Glom Filt Rate - Afr Amer 64 mL/min (>60); Globulin 3.2 g/dL (2.2-4.2); Glucose 132 mg/dL (74-106); Potassium 4.3 mmol/L (3.5-5.1); Protein, Total 6.9 g/dL (6.4-8.2); Sodium Level 139 mmol/L (136-145)
== END | disposition home or self-care (01) ==
LOC: LAB 13:25
PROVIDERS: PCP Family Medicine; Referring Provider Internal Medicine Endocrinology, Diabetes & Metabolism; Visit Provider Internal Medicine Endocrinology, Diabetes & Metabolism
DX: E11.65 Type 2 diabetes mellitus with hyperglycemia (principal); I10 Essential (primary) hypertension
CPT/HCPCS: 36415; 80053

== ENCOUNTER → 2024-08-10 | Outpatient (CLI) | payer OTHER, SELFPAY ==
[2024-08-10 18:19] LABS: Protein, Urine (Random) 49.6 mg/dL (<11.9); Protein:Creat Ratio 148 mg/g CRE (0-200)
[2024-08-10 18:29] LABS: AST(SGOT) 15 U/L (15-37); Alanine Aminotransfer ALT/SGPT 30 U/L (16-61); Albumin, Serum 3.6 g/dL (3.2-5.0); Alkaline Phosphatase 100 U/L (45-117); Anion Gap 8 (5-15); BUN 24 mg/dL (7-18); BUN/Creat Ratio 16.2 RATIO (10-20); Bilirubin, Direct 0.16 mg/dL (0.00-0.30); Calcium,Total 9.7 mg/dL (8.5-10.1); Chloride 103 mmol/L (98-107); Cholesterol 146 mg/dL (200); Creatinine, Serum 1.48 mg/dL (0.70-1.30); EST Glomerular Filtration Rate 52 mL/min (>60); Est Glom Filt Rate - Afr Amer 62 mL/min (>60); Globulin 3.7 g/dL (2.2-4.2); Glucose 191 mg/dL (74-106); High Density Lipoprotein 54 mg/dL; PSA,Total - Annual Screen 1.05 ng/mL (0.00-4.00); Potassium 4.1 mmol/L (3.5-5.1); Protein, Total 7.3 g/dL (6.4-8.2); Sodium Level 137 mmol/L (136-145); Thyroid Stim Hormone (TSH) 0.895 uIU/mL (0.358-3.740); Triglycerides 130 mg/dL; Very Low Density Lipoprotein 26 mg/dL (5-40)
== END | disposition home or self-care (01) ==
LOC: MFPLAB 15:13
PROVIDERS: PCP Family Medicine; Referring Provider Family Medicine; Visit Provider Family Medicine
DX: Z12.5 Encounter for screening for malignant neoplasm of prostate (principal); E11.69 Type 2 diabetes mellitus with other specified complication
CPT/HCPCS: 36415; 80048; 80061; 80076; 82570; 84153; 84156; 84443; G0103

== ENCOUNTER → 2025-02-15 | Outpatient (CLI) | payer OTHER, SELFPAY ==
--- OUTSIDE RECORDS SUMMARY | 2025-02-15 16:43 | XMS RPT_ITS | CCD ---
Author Organization [facility] Care Team Providers Care Pouch Maker Name Role Phone Debra Covington Primary Care Provider [phone] Dr. Debra Covington Primary Care Provider Dr. Debra Covington Referring Provider [phone] Rock Haddad Attending Provider [phone] Dr. Debra Covington Primary Care Provider Dr. Debra Covington Referring Provider [phone] Rock Haddad Attending Provider [phone] JIMENEZ Peña Attending Provider [phone] Debra Covington Primary Care Provider [phone] JELANI JAMISON Referring Unavailable DEBRA COVINGTON Primary Care Unavailable Dr. Debra Covington Primary Care Provider Dr. Debra Covington Referring Provider [phone] Rock Haddad Attending Provider [phone] Dr. Debra Covington Primary Care Provider Dr. Debra Covington Referring Provider [phone] Rock Haddad Attending Provider [phone] Dr. Debra Covington MD Referring Provider Dr. Rock Haddad MD Attending Provider Dr. Sandeep Desai MD Primary Care Provider Rock Haddad Attending Unavailable Sandeep Desai Primary Care Unavailable Debra Covington Referring Unavailable Rock Haddad Attending Unavailable Debra Covington Referring Unavailable Debra Covington Primary Care Unavailable Debra Covington Primary Care Unavailable Debra Covington Referring Unavailable Debra Covington Attending Unavailable Allergies Allergy Classification Reported Allergen(s) Allergy Type Date of Onset Reaction(s) Facility (6 sources) Acetaminophen / HYDROcodone; Translations: [HYDROCODONE-ACET AMINOPHEN] Drug Allergy 2 Other: See Comments [facility] (6 sources) Acetaminophen / oxyCODONE; Translations: [OXYCODONE-ACETAM INOPHEN] Drug Allergy 2 Other: See Comments [facility] (11 sources) Ramipril; Translations: [RAMIPRIL] Drug Allergy 2 Cough [facility] (5 sources) Acetaminophen Drug Allergy 2 Rash [facility] (5 sources) dilTIAZem Drug Allergy 2 Unknown [facility] (5 sources) HYDROcodone Drug Allergy 2 Rash [facility] (5 sources) Lisinopril Drug Allergy 2 Unknown [facility] (5 sources) oxyCODONE Drug Allergy 2 Other [facility] (5 sources) Simvastatin Drug Allergy 2 Unknown [facility] (1 source) Acetaminophen Drug Allergy 5 [facility] (1 source) dilTIAZem Drug Allergy 5 [facility] (1 source) HYDROcodone Drug Allergy 5 [facility] (1 source) Lisinopril Drug Allergy 5 [facility] (1 source) oxyCODONE Drug Allergy 5 [facility] (1 source) Ramipril Drug Allergy 5 [facility] (1 source) Simvastatin Drug Allergy 5 [facility] Medications Current Medications Medication Drug Class(es) Dates Sig (Normalized) Sig (Original) aspirin 81 mg delayed release oral tablet (20 sources) Platelet Aggregation Inhibitor, Nonsteroidal Anti-inflammatory Drug Start: 12-12-2019 End: 04-09-2024 take 1 tablet by mouth once daily Aspirin 81 mg tablet,delayed release (DR/EC) Active 81 mg PO DAILY 90 April 09, 2024 9:35am Start: 04-27-2016 End: 12-12-2019 take 1 tablet by mouth twice daily at mealtime Aspirin 325 MG tablet Discontinued 325 mg PO TWICE DAILY WITH MEALS 53 April 27, 2016 12:00am December 12, 2019 2:35pm Start: 04-14-2016 End: 04-27-2016 Aspirin (Adult Low Dose Aspi rin Ec) 81 MG Tablet. Discontinued 81 mg PO April 14, 2016 12:00am April 27, 2016 7:53am Comment on above: Take 81 mg by mouth once daily. atorvastatin 40 mg oral tablet (10 sources) HMG-CoA Reductase Inhibitor Start: 04-14-20 take 1 tablet by mouth at bedtime Atorvastatin 40 MG tablet Active 40 mg PO AT BEDTIME April 14, 2016 12:00am Comment on above: Take 40 mg by mouth once daily. Blood-Glucose Sensor (Freestyle Romaine 3 Plus Sensor) device (1 source) Start: 02-13-20 Blood-Glucose Sensor (Freestyle Romaine 3 Plus Sensor) device Active 0 .Route 6 February 12, 2025 12:00am As directed bromocriptine 0.8 mg oral tablet (20 sources) Ergot Derivative Start: 12-17-19 End: 06-04-20 take 1 tablet by mouth once daily at mealtime Bromocriptine (Cycloset) 0.8 mg tablet Active 2.4 mg PO EVERY MORNING 270 June 04, 2024 8:27am must administer with a meal/food take 2.4 mg by mouth once daily bromocriptine (CYCLOSET) 0.8 mg tablet Take 2.4 mg by mouth once daily. 0 Active Comment on above: Take 2.4 mg by mouth once daily. glimepiride 4 mg oral tablet (20 sources) Sulfonylurea Start: 02-13-20 take 1 tablet by mouth once daily at breakfast Glimepiride 4 mg tablet Active 4 mg PO EVERY MORNING 90 February 12, 2025 12:00am administer with breakfast Start: 12-23-2023 End: 07-16-2024 take 2 mg by mouth once daily Glimepiride 4 mg tablet Discontinued 2 mg PO DAILY 1 December 23, 2023 1:04pm July 16, 2024 5:17pm Start: 08-26-2023 End: 12-23-2023 take 1 tablet by mouth once daily Glimepiride 4 mg tablet Discontinued 4 mg PO DAILY 1 0 August 26, 2023 1:00am December 23, 2023 1:06pm Start: 12-12-2019 End: 04-15-2023 take 1 tablet by mouth twice daily Glimepiride 4 mg tablet Discontinued 4 mg PO TWICE A DAY 180 2 April 12, 2023 10:38am April 15, 2023 3:41pm Start: 04-27-2016 End: 12-12-2019 take 1 tablet by mouth once daily Glimepiride 2 MG tablet Discontinued 2 mg PO DAILY@0800 30 0 April 27, 2016 12:00am December 12, 2019 2:34pm Start: 04-14-2016 End: 04-27-2016 take 1 tablet by mouth once daily Glimepiride 4 MG tablet Discontinued 4 mg PO DAILY April 14, 2016 12:00am April 27, 2016 7:54am Comment on above: Take 4 mg by mouth d aily with breakfast. losartan potassium 100 mg oral tablet (10 sources) Angiotensin 2 Receptor Any Start: 6 take 1 tablet by mouth once daily Losartan 100 MG tablet Active 100 mg PO DAILY April 14, 2016 12:00am Comment on above: Take 100 mg by mouth once daily. metFORMIN hydrochloride 1000 mg oral tablet (20 sources) Biguanide Start: 0 End: 5 take 1 tablet by mouth twice daily Metformin 1,000 mg tablet Active 1000 mg PO TWICE A DAY 180 3 February 12, 2025 1:51pm Start: 04-14-2016 End: 12-12-2019 take 1 tablet by mouth twice daily at mealtime Metformin 850 MG tablet Discontinued 850 mg PO TWICE DAILY WITH MEALS April 14, 2016 12:00am December 12, 2019 2:35pm End: 01-06-2022 metFORMIN (GLUCOPHAGE) 850 m g tablet Take 1,000 mg by mouth twice daily with meals. 0 01/06/2022 Discontinued (Duplicate Entry) Comment on above: Take 1 tablet by mariama th twice daily. Take 1,000 mg by mariama th twice daily with meals. metoprolol tartrate 100 mg oral tablet (10 sources) beta-Adrenergic Any Start: 04-14-2016 take 1 tablet by mouth twice daily Metoprolol Tartrate 100 MG tablet Active 100 mg PO TWICE A DAY April 14, 2016 12:00am Comment on above: Take 100 mg by mouth twice daily. Multivitamin preparation (4 sources) Start: 12-12-2019 take 1 tablet by mouth once daily Multivitamin Active 1 TABLET PO DAILY December 11, 2019 11:00pm Start: 12-12-2019 take 1 tablet by mariama once daily Multivitamin Active 1 TABLET PO DAILY December 12, 2019 12:00am Multivitamin tablet (1 source) Start: 12-12-2019 Multivitamin t ablet Active 1 {tbl} PO DAILY December 12, 2019 12:00am microencapsulated potassium chloride 10 meq extended release oral tablet (14 sources) Start: 06-14-2022 Potassium Chlo ride 10 mEq tablet,ER particles/crystals Active 10 meq PO June 14, 2022 1:00am Start: 04-15-2016 End: 06-14-2022 take 1 tablet by mouth twice daily Potassium Chloride 20 MEQ tablet Discontinued 20 meq PO TWICE A DAY April 15, 2016 12:00am June 14, 2022 2:35pm take 2 tablets by mo [facility] once daily potassium chloride (K-TAB) 10 mEq tablet Take 20 mEq by mouth once daily. 0 Active Comment on above: Take 20 mEq by mouth once daily. Tirzepatide (Mounjaro) 15 mg/0.5 mL pen injector (3 sources) Start: 02-12-2025 Tirzepatide (Mounjaro) 15 mg/0.5 mL pen injector Active 15 mg SC EVERY WEEK 6 February 12, 2025 1:51pm Start: 10-26-2024 End: 02-12-2025 Tirzepatide (Mounjaro) 15 mg /0.5 mL pen injector Discontinued 15 mg SC EVERY WEEK 6 October 26, 2024 7:55am February 12, 2025 1:52pm Start: 12-23-2023 End: 10-26-2024 Tirzepatide (Mounjaro) 15 mg /0.5 mL pen injector Discontinued 15 mg SC EVERY WEEK 6 December 23, 2023 12:00am October 26, 2024 7:55am Completed/Discontinued Medications Medication Drug Class(es) Dates Sig (Normalized) Sig (Original) acetaminophen 325 mg / oxyCODONE hydrochloride 5 mg oral tablet (5 sources) Opioid Agonist Start: 04-15-2016 End: 04-27-2016 Oxycodone-Acetamino phen 1 TABLET tablet Discontinued 1 {tbl} PO EVERY 6 HOURS NEEDED as needed for Pain April 15, 2016 12:00am April 27, 2016 7:54am Start: 04-15-2016 End: 04-27-2016 take 1 tablet by mouth every six hours as needed Oxycodone-Acetaminophen Discontinued 1 TABLET PO EVERY 6 HOURS NEEDED April 14, 2016 11:00pm April 27, 2016 6:54am amLODIPine 10 mg oral tablet (15 sources) Dihydropyridine Calcium Channel Any Start: 06-14-2022 End: 08-26-2023 take 1 tablet by mouth once daily Amlodipine 10 mg tablet Discontinued 10 mg PO DAILY 90 February 09, 2023 4:39pm August 26, 2023 4:33pm Hypertension Essential (primary) hypertension Start: 04-14-2016 End: 04-27-2016 take 1 tablet by mouth once daily Amlodipine 10 MG tablet Discontinued 10 mg PO DAILY April 14, 2016 12:00am April 27, 2016 7:53am calcium carbonate 500 mg chewable tablet (5 sources) Start: 04-27-2016 End: 12-12-2019 take 2 tablets by mouth every four hours as needed Calcium Carbonate 500 MG tablet Discontinued 1000 mg PO EVERY 4 HOURS NEEDED as needed for Indigestion 0 0 April 27, 2016 12:00am December 12, 2019 2:36pm Start: 04-27-2016 End: 12-12-2019 take 1000 mg by mouth every four hours as needed Calcium Carbonate Discontinued 1000 MG PO EVERY 4 HOURS NEEDED 0 April 26, 2016 11:00pm December 12, 2019 1:36pm chlorthalidone 50 mg oral tablet (20 sources) Thiazide-like Diuretic Start: 12-24-2021 take 1 tablet by mouth once daily chlorthalidone (HYGROTON) 50 mg tablet Take 1 tablet by mouth once daily. 0 12/24/2021 Active Start: 12-17-2019 Chlorthalidone 50 mg tablet Active 25 mg PO DAILY December 17, 2019 8:55am Start: 12-17-2019 take 25 mg by mouth once daily Chlorthalidone Active 25 MG PO DAILY December 17, 2019 7:55am Start: 12-12-2019 End: 12-17-2019 take 1 tablet by mouth once daily Chlorthalidone 50 mg tablet Discontinued 50 mg PO DAILY December 12, 2019 2:34pm December 17, 2019 8:55am Start: 04-27-2016 End: 12-12-2019 Chlorthalidone 50 MG tablet Discontinued 25 mg PO DAILY 0 April 27, 2016 12:00am December 12, 2019 2:38pm Start: 04-27-2016 End: 12-12-2019 take 25 mg by mouth once daily Chlorthalidone Disconti nued 25 MG PO DAILY April 26, 2016 11:00pm December 12, 2019 1:38pm Start: 04-14-2016 End: 04-27-2016 Chlorthalidone 50 MG tablet Discontinued April 14, 2016 12:00am April 27, 2016 7:52am Start: 04-14-2016 End: 04-27-2016 Chlorthalidone Discontinued April 13, 2016 11:00pm April 27, 2016 6:52am End: 01-06-2022 take 1 tablet by mouth once daily chlorthalidone (HYGROTON) 25 mg tablet Take 25 mg by mouth once daily. 0 01/06/2022 Discontinued (Duplicate Entry) Comment on above: Take 1 tablet by mariama th once daily. Take 25 mg by mouth once daily. cloNIDine hydrochloride 0.1 mg oral tablet (5 sources) Central alpha-2 Adrenergic Agonist Start: 04-14-20 End: 04-27-20 take 1 tablet by mouth twice daily Clonidine Hcl 0.1 MG tablet Discontinued 0.1 mg PO TWICE A DAY April 14, 2016 12:00am April 27, 2016 7:53am CPAP (4 sources) CPAP dapagliflozin 10 mg oral tablet (10 sources) Sodium-Glucose Cotransporter 2 Inhibitor Start: 07-24-19 End: 06-14-20 take 1 tablet by mouth once daily Dapagliflozin Propanediol (Farxiga) 10 mg tablet Discontinued 10 mg PO DAILY 90 July 24, 2021 11:14am June 14, 2022 2:34pm docusate sodium 50 mg / sennosides, alf 8.6 mg oral tablet (5 sources) Start: 04-27-20 End: 12-12-19 Sennosides-Docusate Sodium 1 TABLET tablet Discontinued 2 {tbl} PO DAILY as needed for Constipation 0 0 April 27, 2016 12:00am December 12, 2019 2:36pm Start: 04-27-2016 End: 12-12-2019 take 2 tablets by mouth once daily Sennosides-Docusate Sodium Discontinued 2 TABLET PO DAILY 0 April 26, 2016 11:00pm December 12, 2019 1:36pm 0.4 ml enoxaparin sodium 100 mg/ml prefilled syringe (5 sources) Low Molecular Weight Heparin Start: 04-14-2016 End: 04-27-2016 Enoxaparin 40 MG/0.4 ML syringe Discontinued 40 mg SC DAILY@0600 April 14, 2016 12:00am April 27, 2016 7:53am Flash Glucose Scanning Whitman (Freestyle Romaine 14 Day Whitman) misc (5 sources) Start: 12-05-2020 End: 03-11-2022 Flash Glucose Scanning Whitman (Freestyle Romaine 14 Day Whitman) misc Discontinued 0 .ROUTE .MEDSUPPLY 1 0 December 05, 2020 12:00am March 11, 2022 9:27am As directed Start: 12-05-2020 End: 03-11-2022 Flash Glucose Scanning Reade r (Freestyle Romaine 14 Day Whitman) misc Discontinued 0 .ROUTE .MEDSUPPLY 1 December 05, 2020 12:00am March 11, 2022 9:27am As directed Start: 12-05-2020 End: 03-11-2022 Flash Glucose Scanning Reade r (Freestyle Romaine 14 Day Whitman) misc Discontinued 0 .ROUTE .MEDSUPPLY December 04, 2020 11:00pm March 11, 2022 8:27am As directed Start: 12-05-2020 Flash Glucose Scanning Whitman (Freestyle Romaine 14 Day Whitman) misc Active 0 .ROUTE .MEDSUPPLY December 05, 2020 12:00am As directed Flash Glucose Scanning Reade r (Freestyle Romaine 2 Whitman) misc (8 sources) Start: 03-11-2022 End: 02-12-2025 Flash Glucose Scanning Reade r (Freestyle Romaine 2 Whitman) misc Discontinued 0 .Route 1 0 March 11, 2022 3:08pm February 12, 2025 1:51pm Diabetes mellitus Type 2 diabetes mellitus with hyperglycemia As directed Start: 03-11-2022 Flash Glucose Scanning Whitman (Freestyle Romaine 2 Whitman) misc Active 0 .Route 1 March 11, 2022 3:08pm As directed Start: 03-11-2022 Flash Glucose Scanning Whitman (Freestyle Romaine 2 Whitman) misc Active 0 .Route March 11, 2022 2:08pm As directed Start: 03-11-2022 End: 03-11-2022 Flash Glucose Scanning Reade r (Freestyle Romaine 2 Whitman) misc Discontinued 0 .Route 1 March 11, 2022 12:00am March 11, 2022 3:08pm Diabetes mellitus Type 2 diabetes mellitus with hyperglycemia As directed Start: 03-11-2022 End: 03-11-2022 Flash Glucose Scanning Reade r (Freestyle Romaine 2 Whitman) misc Discontinued 0 .Route March 11, 2022 12:00am March 11, 2022 3:08pm As directed Start: 03-11-2022 End: 03-11-2022 Flash Glucose Scanning Reade r (Freestyle Romaine 2 Whitman) misc Discontinued 0 .Route March 10, 2022 11:00pm March 11, 2022 2:08pm As directed Flash Glucose Sensor (Freest yle Romaine 14 Day Sensor) kit (18 sources) Start: 05-17-2022 End: 06-14-2022 Flash Glucose Sensor (Freest yle Romaine 14 Day Sensor) kit Discontinued 0 .Route 6 May 17, 2022 1:00am June 14, 2022 2:34pm As directed Start: 05-17-2022 End: 06-14-2022 Flash Glucose Sensor (Freest yle Romaine 14 Day Sensor) kit Discontinued 0 .Route May 17, 2022 1:00am June 14, 2022 2:34pm As directed Start: 05-17-2022 End: 06-14-2022 Flash Glucose Sensor (Freest yle Romaine 14 Day Sensor) kit Discontinued 0 .Route May 17, 2022 12:00am June 14, 2022 1:34pm As directed Start: 03-11-2022 End: 03-11-2022 Flash Glucose Sensor (Freest yle Romaine 14 Day Sensor) kit Discontinued 0 .ROUTE .MEDSULY 6 March 11, 2022 9:26am March 11, 2022 9:27am As directed Start: 03-11-2022 End: 03-11-2022 Flash Glucose Sensor (Freest yle Romaine 14 Day Sensor) kit Discontinued 0 .ROUTE .MEDSUPPLY March 11, 2022 9:26am March 11, 2022 9:27am As directed Start: 03-11-2022 End: 03-11-2022 Flash Glucose Sensor (Freest yle Romaine 14 Day Sensor) kit Discontinued 0 .ROUTE .MEDSUPPLY March 11, 2022 8:26am March 11, 2022 8:27am As directed Start: 02-16-2021 End: 03-11-2022 Flash Glucose Sensor (Freest yle Romaine 14 Day Sensor) kit Discontinued 0 .ROUTE .MEDSUPPLY 6 February 16, 2021 4:15pm March 11, 2022 9:26am As directed Start: 02-16-2021 End: 03-11-2022 Flash Glucose Sensor (Freest yle Romaine 14 Day Sensor) kit Discontinued 0 .ROUTE .MEDSUPPLY February 16, 2021 4:15pm March 11, 2022 9:26am As directed Start: 02-16-2021 End: 03-11-2022 Flash Glucose Sensor (Freest yle Romaine 14 Day Sensor) kit Discontinued 0 .ROUTE .MEDSUPPLY February 16, 2021 3:15pm March 11, 2022 8:26am As directed Start: 02-16-2021 Flash Glucose Sensor (Freestyle Romaine 14 Day Sensor) kit Active 0 .ROUTE .MEDSUPPLY February 16, 2021 4:15pm As directed Start: 12-05-2020 End: 02-16-2021 Flash Glucose Sensor (Freest yle Romaine 14 Day Sensor) kit Discontinued 0 .ROUTE .MEDSUPPLY 2 December 05, 2020 12:00am February 16, 2021 4:16pm As directed Start: 12-05-2020 End: 02-16-2021 Flash Glucose Sensor (Freest yle Romaine 14 Day Sensor) kit Discontinued 0 .ROUTE .MEDSUPPLY December 04, 2020 11:00pm February 16, 2021 3:16pm As directed Start: 12-05-2020 End: 02-16-2021 Flash Glucose Sensor (Freest yle Romaine 14 Day Sensor) kit Discontinued 0 .ROUTE .MEDSUPPLY 2 December 05, 2020 12:00am February 16, 2021 4:16pm As directed Flash Glucose Sensor (Freestyle Romaine 2 Sensor) kit (13 sources) Start: 07-16-2024 End: 02-12-2025 Flash Glucose Sensor (Freest yle Romaine 2 Sensor) kit Discontinued 0 .Route 6 July 16, 2024 5:17pm February 12, 2025 1:51pm Diabetes mellitus Type 2 diabetes mellitus with hyperglycemia 1 sensor q 14 days Start: 12-19-2023 End: 07-16-2024 Flash Glucose Sensor (Freest yle Romaine 2 Sensor) kit Discontinued 0 .Route 6 December 19, 2023 8:52am July 16, 2024 5:18pm Diabetes mellitus Type 2 diabetes mellitus with hyperglycemia 1 sensor q 14 days Start: 02-04-2023 End: 12-19-2023 Flash Glucose Sensor (Freest yle Romaine 2 Sensor) kit Discontinued 0 .Route 6 February 04, 2023 9:06am December 19, 2023 8:52am Diabetes mellitus Type 2 diabetes mellitus with hyperglycemia 1 sensor q 14 days Start: 02-04-2023 Flash Glucose Sensor (Freestyle Romaine 2 Sensor) kit Active 0 .Route February 04, 2023 8:06am 1 sensor q 14 days Start: 02-04-2023 Flash Glucose Sensor (Freestyle Romaine 2 Sensor) kit Active 0 .Route February 04, 2023 9:06am 1 sensor q 14 days Start: 03-11-2022 End: 02-04-2023 Flash Glucose Sensor (Freest yle Romaine 2 Sensor) kit Discontinued 0 .Route 6 March 11, 2022 3:08pm February 04, 2023 9:06am Diabetes mellitus Type 2 diabetes mellitus with hyperglycemia 1 sensor q 14 days Start: 03-11-2022 End: 02-04-2023 Flash Glucose Sensor (Freest yle Romaine 2 Sensor) kit Discontinued 0 .Route March 11, 2022 2:08pm February 04, 2023 8:06am 1 sensor q 14 days Start: 03-11-2022 End: 02-04-2023 Flash Glucose Sensor (Freest yle Romaine 2 Sensor) kit Discontinued 0 .Route March 11, 2022 3:08pm February 04, 2023 9:06am 1 sensor q 14 days Start: 03-11-2022 Flash Glucose Sensor (Freestyle Romiane 2 Sensor) kit Active 0 .Route March 11, 2022 2:08pm 1 sensor q 14 days Start: 03-11-2022 End: 03-11-2022 Flash Glucose Sensor (Freest yle Romaine 2 Sensor) kit Discontinued 0 .Route 6 March 11, 2022 12:00am March 11, 2022 3:08pm Diabetes mellitus Type 2 diabetes mellitus with hyperglycemia 1 sensor q 14 days Start: 03-11-2022 End: 03-11-2022 Flash Glucose Sensor (Freest yle Romaine 2 Sensor) kit Discontinued 0 .Route March 11, 2022 12:00am March 11, 2022 3:08pm 1 sensor q 14 days Start: 03-11-2022 End: 03-11-2022 Flash Glucose Sensor (Freest yle Romaine 2 Sensor) kit Discontinued 0 .Route March 10, 2022 11:00pm March 11, 2022 2:08pm 1 sensor q 14 days 3 ml liraglutide 6 mg/ml pen injector (20 sources) GLP-1 Receptor Agonist Start: 09-29-2020 End: 04-15-2023 Liraglutide 0.6 mg/0.1 mL (18 mg/3 mL) pen injector Discontinued 1.8 mg SC BEDTIME 27 November 24, 2022 9:39pm April 15, 2023 3:37pm Start: 04-27-2016 End: 09-29-2020 inject 1.8 mg by subcutaneous injection at bedtime Liraglutide 0.6 MG/0.1 ML pen injector Discontinued 1.8 mg SQ BEDTIME 0 April 27, 2016 12:00am September 29, 2020 4:51pm liraglutide (HUDSON TOZA 2-LISA) 0.6 mg/0.1 mL (18 mg/3 mL) pnij Inject 0.6 mg subcutaneously once daily. 0 Active Comment on above: Inject 0.6 mg subcut aneously once daily. MULTIVITAMIN ORAL (5 sources) MULTIVITAMIN ORA L Take by mouth once daily. 0 Active Comment on above: Take by mouth once d aily. pioglitazone 30 mg oral tablet (20 sources) Peroxisome Proliferator Receptor alpha Agonist, Peroxisome Proliferator Receptor gamma Agonist, Thiazolidinedione Start: 12-17-19 End: 02-13-20 take 1 tablet by mouth once daily Pioglitazone 30 mg tablet Discontinued 30 mg PO DAILY 90 3 August 12, 2022 5:30pm August 26, 2023 4:41pm Comment on above: Take 30 mg by mouth once daily. polyethylene glycol 3350 [id number] mg / potassium chloride 2970 mg / sodium bicarbonate 6740 mg / sodium chloride 5860 mg / sodium sulfate 52103 mg powder for oral solution (3 sources) Osmotic Laxative Start: 01-08-20 peg 3350-Electrolytes (GOLYTELY) 236-22.74-6.74 -5.86 gram suspension Indications: Screening for colon cancer Refer to printed prep instructions from your provider. 4000 mL 0 01/07/2022 Active Comment on above: Refer to printed pre p instructions from your provider. sildenafil 100 mg oral tablet (5 sources) Phosphodiesterase 5 Inhibitor Start: 12-12-19 End: 12-23-19 Sildenafil (Viagra) 100 mg tablet Discontinued 100 mg PO DAILY as needed December 12, 2019 12:00am December 23, 2023 12:55pm administer 30 minutes to 4 hours before activity Tirzepatide (Mounjaro) 10 mg/0.5 mL pen injector (3 sources) Start: 01-01-20 End: 04-15-20 Tirzepatide (Mounjaro) 10 mg/0.5 mL pen injector Discontinued 10 mg SC EVERY WEEK 6 1 December 31, 2022 12:00am April 15, 2023 3:39pm Start: 12-31-2022 End: 04-15-2023 Tirzepatide (Mounjaro) 10 mg /0.5 mL pen injector Discontinued 10 MG SC EVERY WEEK 6 December 30, 2022 11:00pm April 15, 2023 2:39pm Start: 12-31-2022 End: 04-15-2023 Tirzepatide (Mounjaro) 10 mg /0.5 mL pen injector Discontinued 10 MG SC EVERY WEEK 6 December 31, 2022 12:00am April 15, 2023 3:39pm Tirzepatide (Mounjaro) 12.5 mg/0.5 mL pen injector (4 sources) Start: 09-22-2023 End: 12-23-2023 Tirzepatide (Mounjaro) 12.5 mg/0.5 mL pen injector Discontinued 12.5 mg SC EVERY WEEK 6 September 22, 2023 5:27pm December 23, 2023 1:06pm Start: 04-15-2023 End: 09-22-2023 Tirzepatide (Mounjaro) 12.5 mg/0.5 mL pen injector Discontinued 12.5 mg SC EVERY WEEK 6 April 15, 2023 12:00am September 22, 2023 5:27pm Start: 04-15-2023 Tirzepatide (M ounjaro) 12.5 mg/0.5 mL pen injector Active 12.5 MG SC EVERY WEEK April 14, 2023 11:00pm Start: 04-15-2023 Tirzepatide (M ounjaro) 12.5 mg/0.5 mL pen injector Active 12.5 MG SC EVERY WEEK April 15, 2023 12:00am traMADol hydrochloride 50 mg oral tablet (5 sources) Opioid Agonist Start: 04-27-2016 End: 12-12-2019 take 1 tablet by mouth three times daily as needed for pain Tramadol 50 MG tablet Discontinued 50 mg PO 3 TIMES DAILY NEEDED as needed for Moderate Pain (4-5/10) April 27, 2016 12:00am December 12, 2019 2:36pm Problems Active Problems Problem Classification Problem Date Documented Date Episodic/Chronic Complications of surgical procedures or medical care (5 sources) Postoperative complication; Translations: [Other complications of procedures, not elsewhere classified, initial encounter] 04-15-2016 Episodic Comment on above: bilateral Diabetes mellitus with complications (2 sources) Type 2 diabetes mellitus; Translations: [Type 2 diabetes mellitus with other specified complication] Onset: 02-12-2025 Chronic Diabetes mellitus without complication (15 sources) Diabetes mellitus; Translations: [Type 2 diabetes mellitus without complications] 01-06-2022 Chronic Disorders of lipid metabolism (14 sources) Hyperlipidemia; Translations: [Hyperlipidemia, unspecified] Chronic Essential hypertension (15 sources) Hypertensive disorder; Translations: [Essential (primary) hypertension] Chronic Other diseases of kidney and ureters (6 sources) Abnormal renal function; Translations: [Disorder of kidney and ureter, unspecified] Episodic Other nutritional; endocrine; and metabolic disorders (6 sources) Morbid obesity; Translations: [Morbid (severe) obesity due to excess calories] Chronic Other nutritional; endocrine; and metabolic disorders (3 sources) Body mass index 40+ - severely obese; Translations: [Morbid (severe) obesity due to excess calories] 04-15-2016 Chronic Other nutritional; endocrine; and metabolic disorders (4 sources) Morbid (severe) obesity due to excess calories; Translations: [Morbid obesity] Chronic Other nutritional; endocrine; and metabolic disorders (2 sources) Obesity; Translations: [Obesity, unspecified] 08-29-2023 Chronic Other nutritional; endocrine; and metabolic disorders (1 source) Obesity, unspecified; Translations: [Obesity, unspecified] 08-26-2023 Chronic Residual codes; unclassified (6 sources) Obstructive sleep apnea syndrome; Translations: [Obstructive sleep apnea (adult) (pediatric)] Chronic Sprains and strains (5 sources) Rupture of quadriceps tendon; Translations: [Strain of unspecified quadriceps muscle, fascia and tendon, initial encounter] 04-15-2016 Episodic Comment on above: bilateral Past or Other Problems Problem Classification Problem Date Documented Da te Episodic/Chronic Other screening for suspected conditions (not mental disorders or infectious disease) (5 sources) Patient encounter status; Translations: [Encounter for screening for malignant neoplasm of colon] Onset: 08-23-2024 Episodic Results Test Name Value Interpretation Reference Range Facility Basic Metabolic Profile (BMP )on 08-10-2024 BUN/CRE 16.2 RATIO Normal 10-20 [facility] Comment on above: Order Comment: Order Date: 08/10/24 Order Info: 0667-1 - BMP Order Info: 0788-1 - LIVER Order Info: 91753-6 - LIPID Order Info: 3016-3 - TSH Order Info: 2857-1 - PSA Performed By: #### L 500.2500, L501.9910, L501.9520, L500.4100, L500.3400 #### [facility] [address] [place], [address] CA,Total 9.7 mg/dL Normal 8.5-10.1 [facility] Comment on above: Order Comment: Order Date: 08/10/24 Order Info: 666-07 - BMP Order Info: 787-07 - LIVER Order Info: - LIPID Order Info: 3015-09 - TSH Order Info: 2856-07 - PSA Performed By: #### L 500.2500, L501.9910, L501.9520, L500.4100, L500.3400 #### [facility] [address] [place], [address] Chloride [Moles/Vol] 103 mmol/L Normal 98-107 [facility] Comment on above: Order Comment: Order Date: 08/10/24 Order Info: 666-07 - BMP Order Info: 787-07 - LIVER Order Info: - LIPID Order Info: 3015-09 - TSH Order Info: 2856-07 - PSA Performed By: #### L 500.2500, L501.9910, L501.9520, L500.4100, L500.3400 #### [facility] [address] [place], [address] CO2 [Moles/Vol] 25.0 mmol/L Normal 21.0-32.0 [facility] Comment on above: Order Comment: Order Date: 08/10/24 Order Info: 666-07 - BMP Order Info: 787-07 - LIVER Order Info: - LIPID Order Info: 3015-09 - TSH Order Info: 2856-07 - PSA Performed By: #### L 500.2500, L501.9910, L501.9520, L500.4100, L500.3400 #### [facility] [address] [place], [address] Creatinine [Mass/Vol] 1.48 mg/dL High 0.70-1.30 [facility] Comment on above: Order Comment: Order Date: 08/10/24 Order Info: 666-07 - BMP Order Info: 787-07 - LIVER Order Info: - LIPID Order Info: 3015-09 - TSH Order Info: 2856-07 - PSA Result Comment: The validity of the calculated GFR GFRAA in patients over 70 years has not been determined. Clinical correlation is essential. Performed By: #### L 500.2500, L501.9910, L501.9520, L500.4100, L500.3400 #### [facility] [address] [place], [address] EST GFR - AA 62 mL/min Normal >60 [facility] Comment on above: Order Comment: Order Date: 08/10/24 Order Info: 666-07 - BMP Order Info: 787-07 - LIVER Order Info: - LIPID Order Info: 3 - TSH Order Info: 2856-07 - PSA Result Comment: Afri can Salvadorean GFR Calc Performed By: #### L 500.2500, L501.9910, L501.9520, L500.4100, L500.3400 #### [facility] [address] [place], [place], [address] [phone] GAP 8 Normal 5-15 [facility] Comment on above: Order Comment: Order Date: 08/10/24 Order Info: 666-07 - BMP Order Info: 787-07 - LIVER Order Info: - LIPID Order Info: 3 - TSH Order Info: 2856-07 - PSA Performed By: #### L 500.2500, L501.9910, L501.9520, L500.4100, L500.3400 #### [facility] [address] [place], [address] GFR/1.73 sq M.predicted among non-blacks MDRD (S/P/Bld) [Vol rate/Area] 52 mL/min/{1.73_m2} Low >60 [facility] Comment on above: Order Comment: Order Date: 08/10/24 Order Info: 666-07 - BMP Order Info: 787-07 - LIVER Order Info: - LIPID Order Info: 3 - TSH Order Info: 28501-08 - PSA Result Comment: Non- GFR Calc Performed By: #### L 500.2500, L501.9910, L501.9520, L500.4100, L500.3400 #### [facility] [address] [place], [address] Glucose [Mass/Vol] 191 mg/dL High 74-106 [facility] Comment on above: Order Comment: Order Date: 08/10/24 Order Info: 666-07 - BMP Order Info: 787-07 - LIVER Order Info: - LIPID Order Info: 3 - TSH Order Info: 2856-07 - PSA Result Comment: Fast ing Glucose result greater than or equal to 126 mg/dL suggests DIABETES MELLITUS per A.D.A. criteria. Performed By: #### L 500.2500, L501.9910, L501.9520, L500.4100, L500.3400 #### [facility] [address] [place], [address] Potassium [Moles/Vol] 4.1 mmol/L Normal 3.5-5.1 [facility] Comment on above: Order Comment: Order Date: 08/10/24 Order Info: 666-07 - BMP Order Info: 787-07 - LIVER Order Info: - LIPID Order Info: 3015-09 - TSH Order Info: 2856-07 - PSA Performed By: #### L 500.2500, L501.9910, L501.9520, L500.4100, L500.3400 #### [facility] [address] [place], [address] Sodium [Moles/Vol] 137 mmol/L Normal 136-145 [facility] Comment on above: Order Comment: Order Date: 08/10/24 Order Info: 666-07 - BMP Order Info: 787-07 - LIVER Order Info: - LIPID Order Info: 3 - TSH Order Info: 1 - PSA Performed By: #### L 500.2500, L501.9910, L501.9520, L500.4100, L500.3400 #### [facility] [address] [place], [address] Urea nitrogen [Mass/Vol] 24 mg/dL High 7-18 [facility] Comment on above: Order Comment: Order Date: 08/10/24 Order Info: 666-07 - BMP Order Info: 787-07 - LIVER Order Info: - LIPID Order Info: 3 - TSH Order Info: 2856-07 - PSA Performed By: #### L 500.2500, L501.9910, L501.9520, L500.4100, L500.3400 #### [facility] [address] [place], [place], [address] Lipid Profileon 08-10-2024 Cholesterol [Mass/Vol] 146 mg/dL Normal 200 [facility] Comment on above: Order Comment: Order Date: 08/10/24 Order Info: 666-07 - BMP Order Info: 787-07 - LIVER Order Info: - LIPID Order Info: 3015-09 - TSH Order Info: 2856-07 - PSA Result Comment: <200 mg/dL Desirable 200-240 mg/dL Borderline >240 mg/dL High Risk Performed By: #### L 500.2500, L501.9910, L501.9520, L500.4100, L500.3400 #### [facility] [address] [place], [address] Cholesterol in HDL [Mass/Vol] 54 mg/dL Normal [facility] Comment on above: Order Comment: Order Date: 08/10/24 Order Info: 666-07 - BMP Order Info: 787-07 - LIVER Order Info: - LIPID Order Info: 3 - TSH Order Info: 2856-07 - PSA Result Comment: The drugs N-Acetylcysteine and Metamizole may falsely depress this assay. Reference Range HDL <40 mg/dL Low HDL Cholesterol HDL >or= 60 mg/dL High HDL Cholesterol Performed By: #### L 500.2500, L501.9910, L501.9520, L500.4100, L500.3400 #### [facility] [address] [place], [address] Cholesterol in LDL [Mass/Vol] 66 mg/dL Normal 0-130 [facility] Comment on above: Order Comment: Order Date: 08/10/24 Order Info: 666-07 - BMP Order Info: 787-07 - LIVER Order Info: - LIPID Order Info: 3 - TSH Order Info: 2856-07 - PSA Performed By: #### L 500.2500, L501.9910, L501.9520, L500.4100, L500.3400 #### [facility] [address] [place], [address] Cholesterol in VLDL [Mass/Vol] 26 mg/dL Normal 5-40 [facility] Comment on above: Order Comment: Order Date: 08/10/24 Order Info: 666-07 - BMP Order Info: 787-07 - LIVER Order Info: - LIPID Order Info: 3015-09 - TSH Order Info: 2856-07 - PSA Performed By: #### L 500.2500, L501.9910, L501.9520, L500.4100, L500.3400 #### [facility] [address] [place], [address] Triglyceride [Mass/Vol] 130 mg/dL Normal [facility] Comment on above: Order Comment: Order Date: 08/10/24 Order Info: 666-07 - BMP Order Info: 787-07 - LIVER Order Info: - LIPID Order Info: 3 - TSH Order Info: 2857-1 - PSA Result Comment: The drugs N-Acetylcysteine and Metamizole may falsely depress this assay. Serum Triglycerides Reference Interval Normal <150 mg/dL Borderline high 150 - 199 mg/dL High 200 - 499 mg/dL Very High > or = 500 mg/dL Performed By: #### L 500.2500, L501.9910, L501.9520, L500.4100, L500.3400 #### [facility] [address] [place], [address] Liver Profileon 08-10-2024 Albumin [Mass/Vol] 3.6 g/dL Normal 3.2-5.0 [facility] Comment on above: Order Comment: Order Date: 08/10/24 Order Info: 666-07 - BMP Order Info: 787-07 - LIVER Order Info: - LIPID Order Info: 3 - TSH Order Info: 2856-1 - PSA Performed By: #### L 500.2500, L501.9910, L501.9520, L500.4100, L500.3400 #### [facility] [address] [place], [address] ALK P 100 U/L Normal 45-117 [facility] Comment on above: Order Comment: Order Date: 08/10/24 Order Info: 666-07 - BMP Order Info: 787-07 - LIVER Order Info: - LIPID Order Info: 3015-09 - TSH Order Info: 7-1 - PSA Performed By: #### L 500.2500, L501.9910, L501.9520, L500.4100, L500.3400 #### [facility] [address] [place], [address] ALT [Catalytic activity/Vol] 30 U/L Normal 16-61 [facility] Comment on above: Order Comment: Order Date: 08/10/24 Order Info: 666-07 - BMP Order Info: 787-07 - LIVER Order Info: - LIPID Order Info: 3 - TSH Order Info: 2857-1 - PSA Performed By: #### L 500.2500, L501.9910, L501.9520, L500.4100, L500.3400 #### [facility] [address] [place], [address] AST [Catalytic activity/Vol] 15 U/L Normal 15-37 [facility] Comment on above: Order Comment: Order Date: 08/10/24 Order Info: 666-07 - BMP Order Info: 787-07 - LIVER Order Info: - LIPID Order Info: 3015-09 - TSH Order Info: 2856-07 - PSA Performed By: #### L 500.2500, L501.9910, L501.9520, L500.4100, L500.3400 #### [facility] [address] [place], [address] Bilirubin [Mass/Vol] 0.50 mg/dL Normal 0.20-1.00 [facility] Comment on above: Order Comment: Order Date: 08/10/24 Order Info: 666-07 - BMP Order Info: 787-07 - LIVER Order Info: - LIPID Order Info: 3015-09 - TSH Order Info: 2856-07 - PSA Result Comment: For patients on eltrombopag therapy, use of Dimension [place] TBIL is not recommended. Performed By: #### L 500.2500, L501.9910, L501.9520, L500.4100, L500.3400 #### [facility] [address] [place], [address] Bilirubin.direct [Mass/Vol] 0.16 mg/dL Normal 0.00-0.30 [facility] Comment on above: Order Comment: Order Date: 08/10/24 Order Info: 666-07 - BMP Order Info: 787-07 - LIVER Order Info: - LIPID Order Info: 3015-09 - TSH Order Info: 2856-07 - PSA Performed By: #### L 500.2500, L501.9910, L501.9520, L500.4100, L500.3400 #### [facility] [address] [place], [address] Globulin (S) [Mass/Vol] 3.7 g/dL Normal 2.2-4.2 [facility] Comment on above: Order Comment: Order Date: 08/10/24 Order Info: 666-07 - BMP Order Info: 787-07 - LIVER Order Info: - LIPID Order Info: 3015-09 - TSH Order Info: 2856-07 - PSA Performed By: #### L 500.2500, L501.9910, L501.9520, L500.4100, L500.3400 #### [facility] [address] [place], [address] T PROT 7.3 g/dL Normal 6.4-8.2 [facility] Comment on above: Order Comment: Order Date: 08/10/24 Order Info: 666-07 - BMP Order Info: 787-07 - LIVER Order Info: - LIPID Order Info: 3015-09 - TSH Order Info: 2856-07 - PSA Performed By: #### L 500.2500, L501.9910, L501.9520, L500.4100, L500.3400 #### [facility] [address] [place], [address] PSA,Total - Annual Screenon 08-10-2024 PSA,TOT SCREEN 1.05 ng/mL Normal 0.00-4.00 [facility] Comment on above: Order Comment: Order Date: 08/10/24 Order Info: 666-07 - BMP Order Info: 787-07 - LIVER Order Info: - LIPID Order Info: 3015-09 - TSH Order Info: 2856-07 - PSA Result Comment: This test was performed using the TPSA assay method for the [employer] chemistry system. Values obtained with different assay methods cannot be used interchangably. When changing PSA assays in the course of monitoring a patient, additional sequential testing should be carried out to confirm baseline values. Performed By: #### L 500.2500, L501.9910, L501.9520, L500.4100, L500.3400 #### [facility] [address] [place], [address] Protein+Creatinine Ratio,Uri neon 08-10-2024 PROT:CRE RATIO 148 mg/g CRE Normal 0-200 [facility] Comment on above: Performed By: #### L 501.0900 #### [facility] [address] [place], [address] Protein (U) [Mass/Vol] 49.6 mg/dL High <11.9 [facility] Comment on above: Performed By: #### L 501.0900 #### [facility] [address] [place], [address] UR CREAT 335.00 mg/dL Normal NO RANGE EST. [facility] Comment on above: Performed By: #### L 501.0900 #### [facility] [address] [place], [address] Thyroid Stim Hormone (TSH)on 08-10-2024 TSH 0.895 uIU/mL Normal 0.358-3.740 [facility] Comment on above: Order Comment: Order Date: 08/10/24 Order Info: 0667-1 - BMP Order Info: 0788-1 - LIVER Order Info: 76331-4 - LIPID Order Info: 3016-3 - TSH Order Info: 2857-1 - PSA Performed By: #### L 500.2500, L501.9910, L501.9520, L500.4100, L500.3400 #### [facility] [address] [place], [place], [address] Endocrinology Visit Reporton 07-16-2024 Endocrinology Visit Report [facility] [address] [place], [place] [address] OFFICE VISIT Date of Service: 07/16/24 MR#: [id number] Acct: [id number] Name: DAVID BAEZ Olena Rep #: [id number] : 1965 Provider: Scar Wilburn Age/Sex: 59/M Location: [facility] [place] Status: Signed Intake Vital Signs 12/23/23 12:57 07/16/24 16:05 Height 6 ft 6 ft Weight: 310 lb 317 lb 2 oz BMI 42.0 43.0 BP 142/86 H 143/85 H Blood Pressure Location Lt brachial Lt brachial Position Sitting Sitting Respiration 16 Pulse 85 86 Pulse Source Monitor Monitor Temp 97.2 F L Temp Source Temporal Pulse Oximetry (%) 99 98 Oxygen Delivery Method room air room air Intake Visit Reasons: 7 M FU, RS 04/27 Chief Complaint: Diabetes Is patient in pain?: No Allergies diltiazem (From Cardizem) Allergy (Unknown, Verified 07/16/24 16:08) Unknown lisinopril (From Zestril) Allergy (Unknown, Verified 07/16/24 16:08) Unknown ramipril (From Altace) Allergy (Unknown, Verified 07/16/24 16:08) Unknown simvastatin (From Zocor) Allergy (Unknown, Verified 07/16/24 16:08) Unknown acetaminophen (From Vicodin) Allergy (Verified 07/16/24 16:08) Rash hydrocodone (From Vicodin) Allergy (Verified 07/16/24 16:08) Rash oxycodone (From Percocet) Adverse Reaction (Verified 07/16/24 16:08) Other Medications ???Medication ???Instructions ???Recorded ???Confirmed ???Type atorvastatin 40 mg tablet 40 mg PO QHS 04/14/16 07/16/24 History losartan 100 mg tablet 100 mg PO DAILY 04/14/16 07/16/24 History metoprolol tartrate 100 mg tablet 100 mg PO BID 04/14/16 07/16/24 History blood sugar diagnostic (OneTouch #10 ea 12/12/19 07/16/24 History Ultra Blue Test Strip) multivitamin 1 tab PO DAILY 12/12/19 07/16/24 History chlorthalidone 50 mg tablet 25 mg PO DAILY 12/17/19 07/16/24 History blood sugar diagnostic (OneTouch #200 ea 02/04/20 07/16/24 Rx Ultra Blue Test Strip) pen needle, diabetic 31 gauge x #100 ea 08/04/20 07/16/24 Rx /16 (Comfort EZ Pen Anza) [employer] Romaine 2 Whitman (flash #1 ea 03/11/22 07/16/24 Rx glucose scanning reader) potassium chloride 10 mEq 10 meq PO 06/14/22 07/16/24 History tablet,extended release(part/cryst) Mounjaro 15 mg/0.5 mL subcutaneous 15 mg (0.5 mL) subcut QWEEK #6 mL 12/23/23 07/16/24 Rx pen injector (tirzepatide) metformin 1,000 mg tablet 1,000 mg PO BID #180 tabs 03/26/24 07/16/24 Rx aspirin 81 mg tablet,delayed 81 mg PO DAILY #90 tabs 04/09/24 07/16/24 Rx release bromocriptine 0.8 mg tablet 2.4 mg (3 x 0.8 mg) PO QAM #270 06/04/24 07/16/24 Rx (Cycloset) tabs [employer] Romaine 2 Sensor (flash #6 ea 07/16/24 07/16/24 Rx glucose sensor) pioglitazone 30 mg tablet 30 mg PO DAILY #90 tabs 07/16/24 07/16/24 Rx PFSH Medical History Obesity Family History Father CAD (coronary artery disease) Myocardial infarction, Onset Age: 40 Mother Breast cancer Heart disease Brother Hypertension Social History Smoking Status: Never smoker what type of physical activity do you participate in: walking frequency: 1-2 times per week duration: < 15 minutes/day HPI HPI Chief Complaint: Diabetes Details: DAVID BAEZ, is a 59 M who presents to the office today for follow up. A1Cis 6.2% He is taking glimepiride 2 mg, Mounjaro 15 mg, cycloset, pioglitazone and metformin. He reports frequent lows under 70. His weight is up 7 pounds. He is on ARB and statin. Labs are up to date. He has no complaints. ROS Const Constitutional: No fatigue, weight change or change in appetite Eyes Eyes: No change in vision ENT ENT: No dizziness/vertigo or difficulty swallowing Cardio Cardiology: No chest pain at rest, chest pain with exertion, shortness of breath or palpitations Musc Musculoskeletal: No abnormal gait, joint pain, numbness or tingling Neuro Neurology: No abnormal gait, memory loss, numbness or tingling Psych Psychiatric: No change in appetite, No memory loss and No Thoughts of harming yourself/Others Resp Respiratory: No cough, chest congestion or shortness of breath Gastro GI: No abdominal pain, constipation, diarrhea or difficulty swallowing Genitourinary Male: No burning urination Skin Skin: No itchy eyes or wounds Endo Endocrine: No fatigue or weight change Aller/Imm Allergy/Immunologic: No itchy eyes Exam Const General: cooperative, healthy appearing, comfortable, no acute distress, well developed and not cushingoid Nutritional Appearance: well nourished Orientation: alert, awake and oriented x3 HENMT Head: normal to inspection Ears: hearing grossly (more content not included)... Normal [facility] Basophil percentageOrdered B y: Rock Haddad on 08-26-2023 Bilirubin [Mass/Vol] 0.60 mg/dL 0.20-1.00 [facility] Comment on above: For patients on eltr ombopag therapy, use of Dimension [place] TBIL is not recommended. Chloride [Moles/Vol] 107 mmol/L 98-107 [facility] Cholesterol [Mass/Vol] 155 mg/dL <200 [facility] Comment on above: <200 mg/dL Desirable 200-240 mg/dL Borderline >240 mg/dL High Risk Glucose [Mass/Vol] 133 mg/dL 74-106 [facility] Comment on above: Fasting Glucose resu lt greater than or equal to 126 mg/dL suggests DIABETES MELLITUS per A.D.A. criteria. Potassium [Moles/Vol] 4.5 mmol/L 3.5-5.1 [facility] Protein [Mass/Vol] 7.1 g/dL 6.4-8.2 [facility] Sodium [Moles/Vol] 139 mmol/L 136-145 [facility] Triglyceride [Mass/Vol] 144 mg/dL <199 [facility] Comment on above: The drugs N-Acetylcy steine and Metamizole may falsely depress this assay.Serum Triglycerides Reference Interval Normal <150 mg/dL Borderline high 150 - 199 mg/dL High 200 - 499 mg/dL Very High > or = 500 mg/dL Laboratory - Chemistry and C hemistry - challengeOrdered By: Rock Haddad on 08-26-2023 Albumin/Globulin [Mass ratio] 1.1 {ratio} 0.9-2.4 [facility] ALP [Catalytic activity/Vol] 86 U/L 45-117 [facility] ALT [Catalytic activity/Vol] 20 U/L 16-61 [facility] Cholesterol in HDL [Mass/Vol] 49 mg/dL >40 [facility] Comment on above: The drugs N-Acetylcy steine and Metamizole may falsely depress this assay. Reference Range HDL <40 mg/dL Low HDL Cholesterol HDL >or= 60 mg/dL High HDL Cholesterol Cholesterol in LDL [Mass/Vol] 77 mg/dL 0-130 [facility] CO2 [Moles/Vol] 28.0 mmol/L 21.0-32.0 [facility] Globulin (S) [Mass/Vol] 3.4 g/dL 2.2-4.2 [facility] Urea nitrogen/Creatinine [Mass ratio] 17.1 mg/mg 10-20 [facility] Laboratory - Hematology and Cell countson 08-26-2023 HbA1c (Bld) [Mass fraction] 8.7 % 4.2-6.3 [facility] No Panel InformationOrdered By: Rock Haddad on 08-26-2023 Estimated GFR (MDRD) Amer 58 mL/min >60 [facility] Comment on above: GFR Calc Estimated GFR (MDRD) Non-Af Amer 48 mL/min >60 [facility] Comment on above: Non- GFR Calc Urine Microalbumin/Creatinine Ratio 26.5 mg/g CRE <30 [facility] Vitamin D 25-Hydroxy 38.6 ng/mL [facility] Comment on above: Vitamin D 25(OH) Sta tus Range Deficiency <20 ng/mL (50nmol/L) Insufficiency 20 - 30 ng/mL (50 - 75 nmol/L) Sufficiency 30 - 100 ng/mL (75 - 250 nmol/L) Toxicity >100 ng/mL (>250 nmol/L) VLDL Cholesterol 29 mg/dL 5-40 [facility] Serum or plasma calcium kiran urement (mass/volume)Ordered By: Rock Haddad on 08-26-2023 Calcium [Mass/Vol] 9.6 mg/dL 8.5-10.1 [facility] Serum or plasma creatinine m easurement (mass/volume)Ordered By: Rock Haddad on 08-26-2023 Creatinine [Mass/Vol] 1.58 mg/dL 0.70-1.30 [facility] Comment on above: The validity of the calculated GFR & GFRAA in patients over 70 years has not been determined. Clinical correlation is essential. Serum or plasma thyroid stim ulating hormone (TSH) measurement (units/volume)Ordered By: Rock Haddad on 08-26-2023 TSH Qn 1.08 uIU/mL 0.358-3.74 [facility] Serum or plasma urea nitroge n measurement (mass/volume)Ordered By: Rock Haddad on 08-26-2023 Urea nitrogen [Mass/Vol] 27 mg/dL 7-18 [facility] Thin prep Papanicolaou smear with manual screeningOrdered By: Rock Haddad on 08-26-2023 Thin prep Papanicolaou smear with manual screening 3.7 g/dL 3.2-5.0 [facility] Thin prep Papanicolaou smear with manual screening 13 U/L 15-37 [facility] Thin prep Papanicolaou smear with manual screening 4 5-15 [facility] Thin prep Papanicolaou smear with manual screening 58.5 mg/L NO RANGE EST. [facility] Urine creatinine measurement (mass/volume)Ordered By: Rock Haddad on 08-26-2023 Creatinine (U) [Mass/Vol] 221.00 mg/dL NO RANGE EST. [facility] Basophil percentageOrdered B y: Debra Covington on 04-29-2023 Cholesterol [Mass/Vol] 140 mg/dL <200 [facility] Comment on above: <200 mg/dL Desirable 200-240 mg/dL Borderline >240 mg/dL High Risk Triglyceride [Mass/Vol] 128 mg/dL <199 [facility] Comment on above: The drugs N-Acetylcy steine and Metamizole may falsely depress this assay.Serum Triglycerides Reference Interval Normal <150 mg/dL Borderline high 150 - 199 mg/dL High 200 - 499 mg/dL Very High > or = 500 mg/dL Laboratory - Chemistry and C hemistry - challengeOrdered By: Debra Covington on 04-29-2023 ALT [Catalytic activity/Vol] 23 U/L 16 [facility] No Panel InformationOrdered By: Debra Covington on 04-29-2023 Prostate Specific Antigen Screen 1.28 ng/mL 0.00-4.00 [facility] Comment on above: This test was perfor med using the TPSA assay method for the[employer] chemistry system. Values obtained with differentassay methods cannot be used interchangably.When changing PSA assays in the course of monitoring apatient, additional sequential testing should be carriedout to confirm baseline values. Serum or plasma cholesterol in HDL measurement (mass/volume)Ordered By: Debra Covington on 04-29-2023 Cholesterol in HDL [Mass/Vol] 48 mg/dL >40 [facility] Comment on above: The drugs N-Acetylcy steine and Metamizole may falsely depress this assay. Reference Range HDL <40 mg/dL Low HDL Cholesterol HDL >or= 60 mg/dL High HDL Cholesterol Serum or plasma cholesterol in VLDL measurement (mass/volume)Ordered By: Debra Covington on 04-29-2023 Cholesterol in VLDL [Mass/Vol] 26 mg/dL 5-40 [facility] Serum or plasma low density lipoprotein (LDL) cholesterol measurement (mass/volume)Ordered By: Debra Covington on 04-29-2023 Cholesterol in LDL [Mass/Vol] 66 mg/dL 0-130 [facility] Thin prep Papanicolaou smear with manual screeningOrdered By: Debra Covington on 04-29-2023 Thin prep Papanicolaou smear with manual screening 10 U/L 15-37 [facility] Laboratory - Hematology and Cell countson 04-15-2023 HbA1c (Bld) [Mass fraction] 6.9 % 4.2-6.3 [facility] Basophil percentageOrdered B y: Dr. Covington on 07-26-2022 Chloride [Moles/Vol] 103 mmol/L 98-107 [facility] Cholesterol [Mass/Vol] 164 mg/dL <200 [facility] Comment on above: <200 mg/dL Desirable 200-240 mg/dL Borderline >240 mg/dL High Risk Glucose [Mass/Vol] 225 mg/dL 74-106 [facility] Comment on above: Glucose result great er than or equal to 200 mg/dLsuggests DIABETES MELLITUS per A.D.A. criteria. Potassium [Moles/Vol] 4.1 mmol/L 3.5-5.1 [facility] Sodium [Moles/Vol] 140 mmol/L 136-145 [facility] Triglyceride [Mass/Vol] 141 mg/dL <199 [facility] Comment on above: The drugs N-Acetylcy steine and Metamizole may falsely depress this assay.Serum Triglycerides Reference Interval Normal <150 mg/dL Borderline high 150 - 199 mg/dL High 200 - 499 mg/dL Very High > or = 500 mg/dL Laboratory - Chemistry and C hemistry - challengeOrdered By: Dr. Covington on 07-26-2022 CO2 [Moles/Vol] 29.0 mmol/L 21.0-32.0 [facility] Urea nitrogen/Creatinine [Mass ratio] 21.4 mg/mg 10-20 [facility] No Panel InformationOrdered By: Dr. Covington on 07-26-2022 Estimated GFR (MDRD) Amer 72 mL/min >60 [facility] Comment on above: GFR Calc Estimated GFR (MDRD) Non-Af Amer 60 mL/min >60 [facility] Comment on above: Non- GFR Calc Urine Microalbumin/Creatinine Ratio 89.3 mg/g CRE <30 [facility] Serum or plasma calcium kiran urement (mass/volume)Ordered By: Dr. Covington on 07-26-2022 Calcium [Mass/Vol] 9.6 mg/dL 8.5-10.1 [facility] Serum or plasma cholesterol in HDL measurement (mass/volume)Ordered By: Dr. Covington on 07-26-2022 Cholesterol in HDL [Mass/Vol] 51 mg/dL >40 [facility] Comment on above: The drugs N-Acetylcy steine and Metamizole may falsely depress this assay. Reference Range HDL <40 mg/dL Low HDL Cholesterol HDL >or= 60 mg/dL High HDL Cholesterol Serum or plasma cholesterol in VLDL measurement (mass/volume)Ordered By: Dr. Covington on 07-26-2022 Cholesterol in VLDL [Mass/Vol] 28 mg/dL 5-40 [facility] Serum or plasma creatinine m easurement (mass/volume)Ordered By: Dr. Covington on 07-26-2022 Creatinine [Mass/Vol] 1.31 mg/dL 0.70-1.30 [facility] Comment on above: The validity of the calculated GFR & GFRAA in patients over 70 years has not been determined. Clinical correlation is essential. Serum or plasma low density lipoprotein (LDL) cholesterol measurement (mass/volume)Ordered By: Dr. Covington on 07-26-2022 Cholesterol in LDL [Mass/Vol] 85 mg/dL 0-130 [facility] Serum or plasma urea nitroge n measurement (mass/volume)Ordered By: Dr. Covington on 07-26-2022 Urea nitrogen [Mass/Vol] 28 mg/dL 7-18 [facility] Thin prep Papanicolaou smear with manual screeningOrdered By: Dr. Covington on 07-26-2022 Thin prep Papanicolaou smear with manual screening 8 5-15 [facility] Thin prep Papanicolaou smear with manual screening 79.8 mg/L NO RANGE EST. [facility] Urine creatinine measurement (mass/volume)Ordered By: Dr. Covington on 07-26-2022 Creatinine (U) [Mass/Vol] 89.40 mg/dL NO RANGE EST. [facility] Laboratory - Hematology and Cell countson 05-07-2022 HbA1c (Bld) [Mass fraction] 9.3 % [facility] CNPNon 01-26-2022 CNPN Telephone (Door 6S) DAVID BAEZ ([id number]) 1965 M Date Time Provider Department 01/26/22 JELANI JAMISON During your visit today, we recorded the following information about you: Miriam Tovar 01/26/2022 5:15 PM Signed Pt canceled post op appointment with Tosin Cortez. He thought that Dr. Jamison had given him all the information after the colonoscopy so he did not need it. Let him know if he should r/s. Tosin Cortez PA-C 01/27/2022 9:28 AM Signed This is correct. The patient had a normal colonoscopy with no biopsies taken, so no post-op visit required. He does however need Health Maintenance and surgical history updated in [facility], and a recall letter placed for 10 year repeat colonoscopy. Encounter forwarded to nursing pool to update chart Allergies As of Date: 01/26/2022 Noted Allergy Reaction ALTACE (RAMIPRIL) 10/20/2021 3 - Cough PERCOCET (OXYCODONE-ACETAMINOP HEN)10/20/2021 14 - Other: See Comments VICODIN (HYDROCODONE-ACETAMIN OPHE*10/20/2021 14 - Other: See Comments Comments: min Date Reviewed: 01/20/2022 Reviewed by: Mackenzie Navarro RN - Fully Assessed Reason for Visit: Patient Question [7002] Prescriptions as of 12/25/2022 - peg 3350-Electrolytes (GOLYTELY) 236-22.74-6.74 -5.86 gram suspension Refer to printed prep instructions from your provider. - chlorthalidone (HYGROTON) 50 mg tablet Take 1 tablet by mouth once daily. - metFORMIN (GLUCOPHAGE) 1,000 mg tablet Take 1 tablet by mouth twice daily. - CPAP - MULTIVITAMIN ORAL Take by mouth once daily. - bromocriptine (CYCLOSET) 0.8 mg tablet Take 2.4 mg by mouth once daily. - pioglitazone HCl (PIOGLITAZONE ORAL) Take 30 mg by mouth once daily. - glimepiride (AMARYL) 2 mg tablet Take 4 mg by mouth daily with breakfast. - aspirin, enteric coated (ASPIRIN, ENTERIC COATED) 81 mg EC tablet Take 81 mg by mouth once daily. - losartan (COZAAR) 100 mg tablet Take 100 mg by mouth once daily. - potassium chloride (K-TAB) 10 mEq tablet Take 20 mEq by mouth once daily. - atorvastatin (LIPITOR) 40 mg tablet Take 40 mg by mouth once daily. - metoprolol tartrate, short acting, (LOPRESSOR) 100 mg tablet Take 100 mg by mouth twice daily. - liraglutide (VICTOZA 2-LISA) 0.6 mg/0.1 mL (18 mg/3 mL) pnij Inject 0.6 mg subcutaneously once daily. Problem List As Of Date 01/26/2022 Noted Resolved Diabetes (HCC) [E11.9] Abnormal kidney function [N28.9] ALEXANDER (obstructive sleep apnea) [G47.33] Hyperlipemia [E78.5] Hypertension [I10] Morbidly obese (HCC) [E66.01] Encounter Status:Closed by MIRIAM TOVAR on 12/25/22 Normal [facility] No Panel Informationon 01-26 Prostate Specific Antigen Screen 0.93 ng/mL 0.00-4.00 [facility] Work Phone: Comment on above: This test was perfor med using the TPSA assay method for the[employer] chemistry system. Values obtained with differentassay methods cannot be used interchangably.When changing PSA assays in the course of monitoring apatient, additional sequential testing should be carriedout to confirm baseline values. ANES POSTPROC EVALon 022 ANES POSTPROC EVAL HNO ID: [id number] Author: Lucretia Panda MD Service: Anesthesiology Author Type: Anesthesiologist Type: Anesthesia Postprocedure Evaluation Filed: 01/20/2022 9:38 AM Note Text: POST ANESTHESIA EVALUATION NOTE : 1965 Procedure Summary Date: 01/20/22 Room / Location: [facility] Endoscopy Anesthesia Start: 0803 Anesthesia Stop: 829 Procedure: COLONOSCOPY SCREENING Diagnosis: Screening for colon cancer (Screening for colorectal malignant neoplasm) Scheduled Providers: Jelani Jamison MD; Marybel Escobar APRN.SKID ADZER Responsible Provider: Lucretia Panda MD Anesthesia Type: MAC ASA Status: 3 Anesthesia Type: MAC Last Vitals Vitals Value Taken Time BP 153/71 01/20/22 0900 Temp 36.8 ?C (98.2 ?F) 01/20/22 0830 Pulse 83 01/20/22 0903 Resp 26 01/20/22 0903 SpO2 95 % 01/20/22 0903 Vitals shown include unvalidated device data. Post Anesthesia Patient Status Patient Evaluation: PACU. PACU/ICU Patient Condition: stable. Anticipated Disposition: phase 2 then home. Neurological Status: aware and responsive. Pulmonary Status: breathing comfortably on room air Airway Control: returned to baseline unsupported. Cardiovascular Status: stable. Pain Management: clinically adequate - multimodal analgesia pain management approach Postoperative Hydration: acceptable. Intraoperative Events: no significant anesthesia events Post Operative Nausea/Vomiting Status: no significant post operative nausea or vomiting Anesthetic Observations: Recommendation: continue current plan of care. Anesthesia Observations No Documentation SIGNATURE: Lucretia Panda MD PATIENT NAME: David Baez DATE: January 20, 2022 TIME: 9:38 AM CSN: [id number] Normal [facility] ANES PRE-OPon 01-20-2022 ANES PRE-OP HNO ID: [id number] Author: Lucretia Panda MD Service: Anesthesiology Author Type: Anesthesiologist Type: Anesthesia Preprocedure Evaluation Filed: 01/20/2022 7:46 AM Note Text: ANESTHESIOLOGY DAY OF SURGERY NOTE : 1965 Procedure Information Date/Time: 01/20/22814 Scheduled providers: Jelani Jamison MD; Marybel Escobar APRN.SKID ADZER Procedure: COLONOSCOPY SCREENING Location: [facility] Endoscopy Estimated body mass index is 46.58 kg/m? as calculated from the following: Height as of 01/06/22: 180.3 cm (5' 11). Weight as of 01/06/22: 151.5 kg (334 lb). Most recent hematocrit and potassium results: No results found for this basename: HCT,HEMATOCRIT,K,POTA SSIUM Relevant Problems ANESTHESIA (+) ALEXANDER (obstructive sleep apnea) CARDIO (+) Hypertension PULMONARY (+) ALEXANDER (obstructive sleep apnea) I - PHYSICAL EVALUATION AIRWAY Patient intubated: No. Tracheostomy tube not present Mallampati: III. TM distance: >3 FB. Neck ROM: limited flexion and extension. Mouth opening: non-adequate. Short neck: no. Thick neck: no DENTAL Dental findings: teeth intact. Additional exam findings: yes. CARDIOVASCULAR Rhythm: regular PULMONARY Breath sounds clear to auscultation. II - ANESTHESIA PLAN ASA Score: 3 Anesthetic Plan: MAC The patient is not a current smoker. Monitoring plan: standard ASA. Postoperative analgesic plan: multimodal analgesia. Patient / Surrogate agrees to blood products: blood products not planned DNR status not reviewed with patient and/or family prior to surgery. Significant changes in the patient condition since the History and Physical, not otherwise documented in primary service progress note: no. Potential Anesthesia issues that may suggest increased risk of complications or contraindication to planned procedure: none. Vitals Value Taken Time BP 165/88 01/20/22 0716 Pulse 88 01/20/22715 Resp 16 01/20/22715 Temp 37.1 ?C (98.8 ?F) 01/20/22715 SpO2 98 % 01/20/22715 Outpatient Medications as of 01/20/2022 Medication Sig - peg 3350-Electrolytes (GOLYTELY) 236-22.74-6.74 -5.86 gram suspension Refer to printed prep instructions from your provider. - chlorthalidone (HYGROTON) 50 mg tablet Take 1 tablet by mouth once daily. - metFORMIN (GLUCOPHAGE) 1,000 mg tablet Take 1 tablet by mouth twice daily. - CPAP - bromocriptine (CYCLOSET) 0.8 mg tablet Take 2.4 mg by mouth once daily. - pioglitazone HCl (PIOGLITAZONE ORAL) Take 30 mg by mouth once daily. - glimepiride (AMARYL) 2 mg tablet Take 4 mg by mouth daily with breakfast. - potassium chloride (K-TAB) 10 mEq tablet Take 20 mEq by mouth once daily. - atorvastatin (LIPITOR) 40 mg tablet Take 40 mg by mouth once daily. - metoprolol tartrate, short acting, (LOPRESSOR) 100 mg tablet Take 100 mg by mouth twice daily. - liraglutide (VICTOZA 2-LISA) 0.6 mg/0.1 mL (18 mg/3 mL) pnij Inject 0.6 mg subcutaneously once daily. - MULTIVITAMIN ORAL Take by mouth once daily. - aspirin, enteric coated (ASPIRIN, ENTERIC COATED) 81 mg EC tablet Take 81 mg by mouth once daily. - losartan (COZAAR) 100 mg tablet Take 100 mg by mouth once daily. Facility-Administered Medications as of 01/20/2022 Medication Dose Route Frequency - lactated ringers iv infusion 30 mL/hr INTRAVENOUS CONTINUOUS I have interviewed and examined the patient. I have reviewed the medical record and/or the pre-anesthesia evaluation, pertinent labs, and test results. This contains updated information obtained within 48 hours of Surgery/Procedure. SIGNATURE: Lucretia Panda MD PATIENT NAME: David Baez DATE: January 20, 2022 TIME: 7:45 AM CSN: [id number] Normal [facility] Colonoscopyon 01-20-2022 Colonoscopy [facility] Gastrointestinal Endoscopy Patient Name: David Baez Procedure Date: 01/20/2022 7:55 AM Date of : 1965 Admit Type: Outpatient Age: 56 Room: [facility] A Gender: Male Note Status: Finalized Attending MD: Jelani Jamison MD Procedure: Colonoscopy Indications: Screening for colorectal malignant neoplasm Providers: Jelani Jamison MD Patient Profile: This is a 56 year old male. Refer to note in patient chart for documentation of history and physical. Last Colonoscopy: none. The patient's first colonoscopy is today. Referring Physician: Jelani Jamison MD (Referring MD) Medicines: See the Anesthesia note for documentation of the administered medications Complications: No immediate complications. Requesting Provider: Procedure: Pre-Anesthesia Assessment: - Prior to the procedure, a History and Physical was performed, and patient medications and allergies were reviewed. The patient's tolerance of previous anesthesia was also reviewed. The risks and benefits of the procedure and the sedation options and risks were discussed with the patient. All questions were answered, and informed consent was obtained. Prior Anticoagulants: The patient has taken no previous anticoagulant or antiplatelet agents except for aspirin. ASA Grade Assessment: III - A patient with severe systemic disease. After reviewing the risks and benefits, the patient was deemed in satisfactory condition to undergo the procedure. After I obtained informed consent, the scope was passed under direct vision. Throughout the procedure, the patient's blood pressure, pulse, and oxygen saturations were monitored continuously. The Colonoscope was introduced through the anus and advanced to the cecum, identified by appendiceal orifice and ileocecal valve. The colonoscopy was performed without difficulty. The patient tolerated the procedure well. The quality of the bowel preparation was good. The ileocecal valve, appendiceal orifice, and rectum were photographed. Scope Withdrawal Time: 0 hours 11 minutes 15 seconds Moderate Sedation: MAC anesthesia was administered by the anesthesia team. Total Procedure Duration: 0 hours 16 minutes 43 seconds Findings: The perianal and digital rectal examinations were normal. Non-bleeding internal hemorrhoids were found during retroflexion. The hemorrhoids were mild and small. The exam was otherwise without abnormality. Impression: - Non-bleeding internal hemorrhoids. - The examination was otherwise normal. - No specimens collected. Recommendation: - Patient has a contact number available for emergencies. The signs and symptoms of potential delayed complications were discussed with the patient. Return to normal activities tomorrow. Written discharge instructions were provided to the patient. - Resume previous diet. - Continue present medications. - Repeat colonoscopy in 10 years for screening purposes. - Return to referring physician PRN. - Resume previous antiplatelet medication today at prior dose. Procedure Code(s): --- Professional --- 74545, Colonoscopy, flexible; diagnostic, including collection of specimen(s) by brushing or washing, when performed (separate procedure) Diagnosis Code(s): --- Professional --- Z12.11, Encounter for screening for malignant neoplasm of colon K64.8, Other hemorrhoids CPT copyright 2019 [employer]. All rights reserved. The codes documented in this report are preliminary and upon envelope machine operator review may be revised to meet current compliance requirements. Attending Participation: I personally performed the entire procedure. Scope In: 8:08:40 AM Scope Out: 8:25:23 AM MD Jelani Sen MD 01/20/2022 8:28:52 AM This report has been signed electronically by Jelani Jamison MD Number of Addenda: 0 Note Initiated On: 01/20/2022 7:55 AM Estimated Blood Loss: Estimated blood loss: none. Normal [facility] GLUCOSE, BLOOD (POC)on 01-20 Glucose [Mass/Vol] 173 mg/dL Abnormal 74 - 99 mg/dL [facility] Glucose [Mass/Vol] 146 mg/dL Abnormal 74 - 99 mg/dL [facility] HISTORY PHYSICALon HISTORY PHYSICAL HNO ID: [id number] Author: Jelani Jamison MD Service: General Surgery Author Type: Physician Type: HANDP Filed: 01/20/2022 7:58 AM Note Text: HISTORY AND PHYSICAL ? David Baez 1965 ? REFERRING PHYSICIAN: Debra Covington MD ? CHIEF COMPLAINT: Consult (colonoscopy) ? HPI: The patient is a 56 year old male referred for endoscopy. David notes no history of colon complaints. ? The patient notes no history of upper GI complaints. ? David has not undergone prior endoscopy. ? The patient is being seen by me today at the request of Dr. Debra Covington MD for my opinion and advice regarding Encounter for screening for malignant neoplasm of colon (primary encounter diagnosis). ? ? PAST MEDICAL HISTORY PAST MEDICAL HISTORY Diagnosis Date - Diabetes (HCC) ? - Hyperlipemia ? - Hypertension ? ? ? PAST SURGICAL HISTORY PAST SURGICAL HISTORY Procedure Laterality Date - PAST SURGICAL HISTORY OF Bilateral 2016 ? quad tenden repair - PAST SURGICAL HISTORY OF ? ? ? bicep repair on right side - REPAIR EXTENSOR TENDON FINGER W/O GRAFT EACH Right ? - ROTATOR CUFF REPAIR Bilateral ? CURRENT MEDICATIONS Current Outpatient Medications Medication Sig - MULTIVITAMIN ORAL Take by mouth once daily. - bromocriptine (CYCLOSET) 0.8 mg tablet Take 0.8 mg by mouth. 3 tabs daily - pioglitazone HCl (PIOGLITAZONE ORAL) Take 30 mg by mouth once daily. - glimepiride (AMARYL) 2 mg tablet Take 2 mg by mouth daily with breakfast. - aspirin, enteric coated (ASPIRIN, ENTERIC COATED) 81 mg EC tablet Take 81 mg by mouth once daily. - losartan (COZAAR) 100 mg tablet Take 100 mg by mouth once daily. - metFORMIN (GLUCOPHAGE) 850 mg tablet Take 1,000 mg by mouth twice daily with meals. ? - chlorthalidone (HYGROTON) 25 mg tablet Take 25 mg by mouth once daily. - potassium chloride (K-TAB) 10 mEq tablet Take 10 mEq by mouth twice daily. - atorvastatin (LIPITOR) 40 mg tablet Take 40 mg by mouth once daily. - metoprolol tartrate, short acting, (LOPRESSOR) 100 mg tablet Take 100 mg by mouth twice daily. - liraglutide (VICTOZA 2-LISA) 0.6 mg/0.1 mL (18 mg/3 mL) pnij Inject subcutaneously once daily. ? No current facility-administered medications for this visit. ? ? ALLERGIES: Altace [Ramipril], Percocet [Oxycodone-Acetaminop hen], and Vicodin [Hydrocodone-Acetamin ophen] ? PERSONAL HISTORY: SOCIAL HISTORY Social History ? Tobacco Use - Smoking status: Never Smoker - Smokeless tobacco: Former User Vaping Use - Vaping Use: Never used Substance Use Topics - Alcohol use: No - Drug use: Never ? FAMILY HISTORY: FAMILY HISTORY FAMILY HISTORY Problem Relation Age of Onset - Breast Cancer Mother ? - other (bladder) Mother ? ? ? REVIEW OF SYMPTOMS: The review of systems data was entered by the nurse and reviewed by me ? Nursing Notes: Norma Layton LPN 10/20/2021 10:14 [...] Infections: The patient denies a history of audelia (more content not included)... Normal [facility] (Door 6S) DAVID BAEZ ([id number]) 1965 M Date Time Provider Department 01/06/22 JELANI JAMISON During your visit today, we recorded the following information about you: Marianne Pettit 01/06/2022 2:48 PM Signed Patient scheduled for colonoscopy with Shaheen in [place] on 01/20 Patients prep Golytely was never sent to his pharmacy on file. Can we please send patients prep over to [facility] in [place] Please and thank you Rachael Jelani Jamison III, MD 01/07/2022 1:05 PM Signed Bowel Preparation Instructions for: Golytely, Nulytely, Trilyte or Colyte (polyethylene glycol 3350 and electrolytes) IF YOU DO NOT FOLLOW THESE DIRECTIONS, YOUR COLONOSCOPY WILL BE CANCELLED. Bales Instructions: ? Your bowel must be empty so that your doctor can clearly view your colon. Follow all of the instructions in this handout EXACTLY as they are written. ? Do NOT eat any solid food the ENTIRE day before your colonoscopy. Drink only clear liquids. ? Buy your bowel preparation at least 5 [...] If you do not have a responsible transfer driver (family member or friend) with you [...] ASPIRIN. Five (5) Days Before Your Colonoscopy ? Do NOT take medicines that stop diarrhea - such as Imodium, Kaopectate, or Pepto Bismol. ? Do NOT take fiber supplements - such as Metamucil, Citrucel, or Perdiem. ? Do NOT take products that contain iron - such as multi-vitamins (the label lists what is in the products). ? Do NOT take Vitamin E. Buy the prescription bowel preparation solution at your local pharmacy [facility] 06/2019 Bowel Preparation Instructions for: Golytely, Nulytely, Trilyte or Colyte (polyethylene glycol 3350 and electrolytes) Three (3) Days Before Your Colonoscopy ? Do NOT eat high-fiber foods - such as popcorn, beans, seeds (flax, sunflower, quinoa), multigrain bread, nuts, salad/vegetables, or fresh and dried fruit. One (1) Day Before Your Colonoscopy ? Only drink clear liquids the ENTIRE DAY [...] other flavorings to the solution. Part 1 ? At 6:00 PM - Evening before your colonoscopy ? Drink an 8-oz glass of bowel preparation every 10 minutes for a total of 8 glasses. ? You may continue to drink clear liquids until midnight. Part 2 ? On the day of your colonoscopy you may drink clear liquids up to (three) 3 hours before your procedure. ? 4 1/2 hours before your colonoscopy ? Drink an 8-oz glass of bowel preparation every 10 minutes for a total of 8 glasses. ? Fifteen (15) minutes later, drink an 8-oz glass of clear liquids every 15 minutes for a total of 2 glasses. ? You may continue to drink clear liquids up to (three) 3 hours before your exam. 3 06/2019 Jelani Jamison III, MD 01/07/2022 1:06 PM Signed prep sent Allergies As of Date: 01/06/2022 Noted Allergy Reaction ALTACE (RAMIPRIL) 10/20/2021 3 - Cough PERCOCET (OXYCODONE-ACETAMINOP HEN)10/20/2021 14 - Other: See Comments VICODIN (HYDROCODONE-ACETAMIN OPHE*10/20/2021 14 - Other: See Comments Comments: shaky Date Reviewed: 01/06/2022 Reviewed by: Hernandez (more content not included)... Normal [facility] HISTORY PHYSICALon HISTORY PHYSICAL HNO ID: [id number] Author: Ellyn Mckinley APRN.CERTIFIED PHARMACY TECHNICIAN Service: ? Author Type: Nurse Practitioner Type: HANDP Filed: 01/06/2022 12:06 PM Note Text: HISTORY AND PHYSICAL EXAMINATION SERVICE DATE: 01/06/2022 SERVICE TIME: 11:22 AM PRIMARY CARE PHYSICIAN: Debra Covington MD REASON FOR VISIT: David Baez is a 56 year old male who [...] fevers. Neurological: No history of TIA's, stroke, DELIVERY DIRECTOR tumor, impaired sensorium, hemiplegia, paraplegia or quadraplegia. No neurological symptoms or problems. Respiratory: Positive for: obstructive sleep apnea (using CPAP). Negative for: asthma, bronchitis, COPD, current cough, dyspnea, home oxygen, orthopnea and pneumonia within 6 weeks. Cardiovascular: Positive for: hyperlipidemia (on Rx) and hypertension (on Rx) Negative for: arrhythmia, atrial fibrillation, CAD, chest pain, CHF, DVT/PE, recent MA and murmur/valvular heart disease. GI: See HPI. [...] and itching. PAST MEDICAL HISTORY Diagnosis Date - Diabetes (HCC) - Hyperlipemia - Hypertension - ALEXANDER (obstructive sleep apnea) PAST SURGICAL HISTORY Procedure Laterality Date - REPAIR BICEPS LONG TENDON Right - REPAIR EXTENSOR TENDON FINGER W/O GRAFT EACH Right - REVISION QUADRICEPS Bilateral 2016 - ROTATOR CUFF REPAIR Bilateral FAMILY HISTORY Problem Relation Age of Onset - Breast Cancer Mother - other (Bladder Cancer) Mother - Heart Attack Father Social History Tobacco Use - Smoking status: Never Smoker - Smokeless tobacco: Former User Vaping Use - Vaping Use: Never used Substance Use Topics - Alcohol use: No - Drug use: Never Prior to Admission medications [...] No medication comments found. ALLERGIES Allergen Reactions - Altace [Ramipril] Cough - Percocet [Oxycodone* Ot (more content not included)... Normal [facility] Laboratory - Hematology and Cell countson 12-24-2021 HbA1c (Bld) [Mass fraction] 8.4 % [facility] Work Phone: Vital Signs Date Time Vital Sign Value Performing Clinician Facility 02-12-2025 13:25-0400 Body height 182.[address] Debra Covington MD Work Phone: [facility] 02-12-2025 13:25-0400 Body mass index (BMI) [Ratio] 40.3 kg/m2 Dr. Debra Covington MD Work Phone: [facility] 02-12-2025 13:25-0400 Body weight 134.[address] Debra Covington MD Work Phone: 0(887)049-608158 [place] [address] 02-12-2025 13:25-0400 Diastolic blood pressure 89 mm[Hg] Dr. Debra Covington MD Work Phone: [facility] 02-12-2025 13:25-0400 Heart rate 93 /min Dr. Debra Covington MD Work Phone: 6(039)681-347358 [place] [address] 02-12-2025 13:25-0400 SaO2% (BldA) [Mass fraction] 97 % Dr. Debra Covington MD Work Phone: 5(436)049-344858 [place] [address] 02-12-2025 13:25-0400 Systolic blood pressure 129 mm[Hg] Dr. Debra Covington MD Work Phone: 2(247)939-118807 [place] [address] 08-26-2023 15:25-0500 Body height 182.[address] Debra Covington Work Phone: 0(548)260-203607 [place] [address] 08-26-2023 15:25-0500 Body mass index (BMI) [Ratio] 38.9 kg/m2 Dr. Debra Covington Work Phone: 5(752)015-184858 [place] [address] 08-26-2023 15:25-0500 Body temperature 97.8 [degF] Dr. Debra Covington Work Phone: 5(653)516-693307 [place] [address] 08-26-2023 15:25-0500 Body weight 130.[address] Debra Covington Work Phone: 0(286)705-061780 [address] 08-26-2023 15:25-0500 Diastolic blood pressure 80 mm[Hg] Dr. Debra Covington Work Phone: 2(217)749-645658 [place] [address] 08-26-2023 15:25-0500 Heart rate 90 /min Dr. Debra Covington Work Phone: 2(089)332-708158 [place] [address] 08-26-2023 15:25-0500 Respiratory rate 18 /min Dr. Debra Covington Work Phone: 3(134)225-930258 [place] [address] 08-26-2023 15:25-0500 SaO2% (BldA) [Mass fraction] 98 % Dr. Debra Covington Work Phone: 3(267)178-277107 [place] [address] 08-26-2023 15:25-0500 Systolic blood pressure 122 mm[Hg] Dr. Debra Covington Work Phone: 6(152)973-463307 [place] [address] 04-15-2023 15:24-0400 Body height 182.[address] Debra Covington Work Phone: 4(027)341-233507 [place] [address] 04-15-2023 15:24-0400 Body mass index (BMI) [Ratio] 45 kg/m2 Dr. Debra Covington Work Phone: 7(901)517-345907 [place] [address] 04-15-2023 15:24-0400 Body temperature 98.2 [degF] Dr. Debra Covington Work Phone: 2(828)065-200907 [place] [address] 04-15-2023 15:24-0400 Body weight 150.[address] Debra Covington Work Phone: 6(229)809-104607 [place] [address] 04-15-2023 15:24-0400 Diastolic blood pressure 80 mm[Hg] Dr. Debra Covington Work Phone: 8(091)540-367507 [place] [address] 04-15-2023 15:24-0400 Heart rate 88 /min Dr. Debra Covington Work Phone: 7(277)792-384107 [place] [address] 04-15-2023 15:24-0400 Respiratory rate 18 /min Dr. Debra Covington Work Phone: 9(828)383-818407 [place] [address] 04-15-2023 15:24-0400 SaO2% (BldA) [Mass fraction] 97 % Dr. Debra Covington Work Phone: 4(984)884-241607 [place] [address] 04-15-2023 15:24-0400 Systolic blood pressure 143 mm[Hg] Dr. Debra Covington Work Phone: 4(071)741-147107 [place] [address] 06-14-2022 13:31-0500 Diastolic blood pressure 110 mm[Hg] Dr. Debra Covington Work Phone: 8(186)501-575707 [place] [address] 06-14-2022 13:31-0500 Systolic blood pressure 190 mm[Hg] Dr. Debra Covington Work Phone: 3(523)281-010707 [place] [address] 06-14-2022 13:26-0500 Body height 182.[address] Debra Covington Work Phone: [facility] 06-14-2022 13:26-0500 Body mass index (BMI) [Ratio] 46.1 kg/m2 Dr. Debra Covington Work Phone: [facility] 06-14-2022 13:26-0500 Body temperature 96.5 [degF] Dr. Debra Covington Work Phone: 5(681)139-990358 [place] [address] 06-14-2022 13:26-0500 Body weight 154.[address] Debra Covington Work Phone: 5(307)641-912180 [address] 06-14-2022 13:26-0500 Heart rate 93 /min Dr. Debra Covington Work Phone: 6(240)367-977780 [address] 06-14-2022 13:26-0500 Respiratory rate 20 /min Dr. Debra Covington Work Phone: 6(899)723-134880 [address] 06-14-2022 13:26-0500 SaO2% (BldA) [Mass fraction] 97 % Dr. Debra Covington Work Phone: 7(045)030-821558 [place] [address] 05-07-2022 15:28-0400 Body mass index (BMI) [Ratio] 46.1 kg/m2 Dr. Debra Covington Work Phone: 4(312)293-769458 [place] [address] 05-07-2022 15:28-0400 Body temperature 96.5 [degF] Dr. Debra Covington Work Phone: [facility] 05-07-2022 15:28-0400 Body weight 154.[address] Debra Covington Work Phone: 2(269)806-760358 [place] [address] 05-07-2022 15:28-0400 Diastolic blood pressure 97 mm[Hg] Dr. Debra Covington Work Phone: 6(231)636-757958 [place] [address] 05-07-2022 15:28-0400 Heart rate 81 /min Dr. Debra Covington Work Phone: [facility] 05-07-2022 15:28-0400 Respiratory rate 18 /min Dr. Debra Covington Work Phone: [facility] 05-07-2022 15:28-0400 SaO2% (BldA) [Mass fraction] 97 % Dr. Debra Covington Work Phone: [facility] 05-07-2022 15:28-0400 Systolic blood pressure 175 mm[Hg] Dr. Debra Covington Work Phone: [facility] 01-20-2022 09:00-0400 Diastolic blood pressure 71 mm[Hg] Jelani Jamison MD Work Phone: [facility] 01-20-2022 09:00-0400 Heart rate 81 /min Jelani Jamison MD Work Phone: [facility] 01-20-2022 09:00-0400 Respiratory rate 15 /min Jelani Jamison MD Work Phone: [facility] 01-20-2022 09:00-0400 SaO2% (BldA) [Mass fraction] 95 % Jelani Jamison MD Work Phone: [facility] 01-20-2022 09:00-0400 Systolic blood pressure 153 mm[Hg] Jelani Jamison MD Work Phone: [facility] 01-20-2022 08:30-0400 Body temperature 98.2 [degF] Jelani Jamison MD Work Phone: [facility] 01-06-2022 11:11-0400 Body height 180.3 cm Pacc 1 Work Phone: [facility] 01-06-2022 11:11-0400 Body temperature 98.01 [degF] Pacc 1 Work Phone: [facility] 01-06-2022 11:11-0400 Body weight 151.5 kg Pacc 1 Work Phone: [facility] 01-06-2022 11:11-0400 Diastolic blood pressure 88 mm[Hg] Pacc 1 Work Phone: [facility] 01-06-2022 11:11-0400 Heart rate 80 /min Pacc 1 Work Phone: [facility] 01-06-2022 11:11-0400 Respiratory rate 16 /min Pacc 1 Work Phone: [facility] 01-06-2022 11:11-0400 SaO2% (BldA) [Mass fraction] 97 % Pacc 1 Work Phone: [facility] 01-06-2022 11:11-0400 Systolic blood pressure 164 mm[Hg] Pacc 1 Work Phone: [facility] 12-24-2021 15:29-0400 Body height 182.[address] Debra Covington Work Phone: [facility] Work Phone: 12-24-2021 15:29-0400 Body mass index (BMI) [Ratio] 44.5 kg/m2 Dr. Debra Covington Work Phone: [facility] Work Phone: 12-24-2021 15:29-0400 Body temperature 95.4 [degF] Dr. Debra Covington Work Phone: [facility] Work Phone: 12-24-2021 15:29-0400 Body weight [address] Debra Covington Work Phone: [facility] Work Phone: 12-24-2021 15:29-0400 Diastolic blood pressure 92 mm[Hg] Dr. Debra Covington Work Phone: [facility] Work Phone: 12-24-2021 15:29-0400 Heart rate 106 /min Dr. Debra Covington Work Phone: [facility] Work Phone: 12-24-2021 15:29-0400 Respiratory rate 18 /min Dr. Debra Covington Work Phone: [facility] Work Phone: 12-24-2021 15:29-0400 SaO2% (BldA) [Mass fraction] 95 % Dr. Debra Covington Work Phone: [facility] Work Phone: 12-24-2021 15:29-0400 Systolic blood pressure 160 mm[Hg] Dr. Debra Covington Work Phone: [facility] Work Phone: Encounters Encounter Date Encounter Type Care Provider Facility Start: 02-12-2025 End: 02-12-[address] Rock Haddad MD -[facility] Work Phone: Start: 02-12-2025 End: 02-12-[address] Debra Covington MD Work Phone: -[facility] Start: 08-10-2024 End: 08-10-2024 ambulatory Debra Covington Facility:[facility] Start: 07-16-2024 End: 07-16-2024 ambulatory Rock Haddad Facility:[facility] Start: 08-26-2023 End: 08-26-[address] Debra Covington Work Phone: [facility] Work Phone: Start: 08-26-2023 End: 08-26-[address] Debra Covington Work Phone: [facility] Work Phone: Start: 04-29-2023 End: 04-29-[address] Debra Covington Work Phone: [facility] Work Phone: Start: 04-29-2023 End: 04-29-[address] Debra Covington Work Phone: [facility] Start: 04-15-2023 End: 04-15-[address] Debra Covington Work Phone: [facility] Work Phone: Start: 07-26-2022 End: 07-26-[address] Debra Covington Work Phone: [facility] Work Phone: Start: 07-26-2022 End: 07-26-[address] Debra Covington Work Phone: [facility] Start: 06-14-2022 End: 06-14-[address] Debra Covington Work Phone: [facility] Start: 05-07-2022 End: 05-07-[address] Debra Covington Work Phone: [facility] Start: 01-26-2022 End: 01-26-[address] Debra Covington Work Phone: [facility] Start: 01-26-2022 Telephone encounter Jelani ebll MD Work Phone: General Surgery Comment on above: Patient Question Start: 01-20-2022 End: 01-20-2022 Subsequent hospital visit by physician Jelani Jamison MD Work Phone: [facility] Endoscopy Comment on above: Screening for colon cancer [Z12.11] Start: 01-06-2022 Telephone encounter Jelani bell MD Work Phone: General Surgery Comment on above: 01/20 colon [place] Start: 01-06-2022 End: 01-06-2022 ambulatory JELANI JAMISON Facility:[facility] Start: 01-06-2022 End: 01-06-2022 Admission to establishment [facility] [place] Work Phone: [facility] Start: 01-06-2022 End: 01-06-2022 ambulatory Pacc [place] Work Phone: Pre Anesthesia Comment on above: Preoperative examina tion (Primary Dx); Colon cancer screening; Type 2 diabetes mellitus with other specified complication, without long-term current use of insulin (HCC); Abnormal kidney function; ALEXANDER (obstructive sleep apnea); Hyperlipidemia, unspecified hyperlipidemia type; Hypertension, unspecified type; Morbidly obese (HCC) Start: 01-06-2022 End: 01-06-2022 Preprocedural examination done [place] [address] Work Phone: Pre Anesthesia Start: 12-24-2021 End: 12-24-[address] Debra Covington Work Phone: [facility] Start: 10-20-2021 Telephone encounter Jelani bell MD Work Phone: General Surgery Comment on above: 01-20-2022 [facility] Procedures Date Procedure Procedure Detail Performing Clinician Start: 01-20-2022 Gluc bld gluc mntr d ev cleared fda spec home use Marybel Kandrac LEVER TENDER.SKID ADZER Work Phone: Start: 01-20-2022 Colon ca scrn not hi rsk ind Jelani Jamison MD Work Phone: Start: 01-20-2022 Gluc bld gluc mntr d ev cleared fda spec home use Marybel Kandrac LEVER TENDER.SKID ADZER Work Phone: Start: 01-20-2022 Colonoscopy Jelani celestin MD Work Phone: Plan of Treatment Date Care Activity Detail Author Start: 01-21-2032 Colonoscopy COLONOSCOPY [facility] Start: 01-21-2032 COLORECTAL CANCER SCREENING COLORECTAL CANCER SCREENING [facility] Start: 03-11-2023 Influenza vaccination INFLUENZ A (Season Ended) [facility] Start: 01-20-2023 Colonoscopy COLONOSCOPY [facility] Start: 01-20-2023 COLORECTAL CANCER SCREENING COLORECTAL CANCER SCREENING [facility] Start: 07-11-2022 DEPRESSION ASSESSMENT DEPRESSION ASS ESSMENT [facility] Start: 03-11-2022 Influenza vaccination INFLUENZA (#1) [facility] Start: 09-11-2021 COVID-19 VACCINE (4 - Booster for Pfizer series) COVID-19 VACCINE (4 - Booster for Pfizer series) [facility] Start: 07-09-2021 COVID-19 VACCINE (4 - Booster for Pfizer series) COVID-19 VACCINE (4 - Booster for Pfizer series) [facility] Start: 02-25-2019 PROSTATE CANCER SCREENING DISCUSSION PROSTATE CANCER SCREENING DISCUSSION [facility] Start: 02-25-2014 SHINGRIX VACCINE (1 of 2) SHINGRIX VACCINE (1 of 2) [facility] Start: 02-25-2009 COLOGUARD (FIT-DNA) COLOGUARD (FIT-D NA) [facility] Start: 02-25-2009 Colonoscopy COLONOSCOPY [facility] Start: 02-25-2009 COLORECTAL CANCER SCREENING COLORECTAL CANCER SCREENING [facility] Start: 02-25-[address] COLONOGRAPHY [facility] Start: 02-25-2009 FECAL OCCULT BLOOD FECAL OCCULT BLOO D [facility] Start: 02-25-2009 SIGMOIDOSCOPY SIGMOIDOSCOPY [facility] Start: 02-25-1983 HEPATITIS B (1 of 3 - Risk 3-dose series) HEPATITIS B (1 of 3 - Risk 3-dose series) [facility] Start: 02-25-1983 Urine microalbumin profile DTAP,TDAP,TD (1 - Tdap) [facility] Start: 02-25-1982 ANNUAL PCP TEAM FORGING DIE FINISHER GILMER DISEASE VISIT ANNUAL PCP TEAM CHRONIC DISEASE VISIT [facility] Start: 02-25-1982 BP CONTROLLED (<130/80) BP CONTROLLE D (<130/80) [facility] Start: 02-25-1982 Hepatitis B surface antibody level LDL CHOLESTEROL [facility] Start: 02-25-1982 HEPATITIS C SCREENING HEPATITIS C SC REENING [facility] Start: 02-25-1982 HIV SCREENING HIV SCREENING [facility] Start: 1976 Adult depression screening assessment DEPRESSION SCREENING [facility] Start: 02-25-1974 3 comp foot exam completed DIABETIC FOOT EXAM [facility] Start: 02-25-1974 Hepatitis B screening URINE ALBUMIN:CREATININE RATIO [facility] Start: 02-25-1974 Hepatitis C antibody , confirmatory test DILATED RETINAL EXAM [facility] Start: 02-25-1970 PNEUMOCOCCAL (1 - PCV) PNEUMOCOCCAL (1 - PCV) [facility] Start: 02-25-1969 Hemoglobin A1c/Hemoglobin.total in Blood HBA1C [facility] Start: 1965 HEPATITIS B (1 of 3 - 3-dose series) HEPATITIS B (1 of 3 - 3-dose series) [facility] End: 01-07-2023 COLONOSCOPY DIAGNOSTIC COLONOSCOPY DIAGNOSTIC Endoscopy Routine Screening for colon cancer 1 Occurrences starting 01/07/2022 until 01/07/2023 [facility] Work Phone: Comment on above: 1 Occurrences starti ng 01/07/2022 until 01/07/2023 [place] [facility] Immunizations Immunization Date Immunization Notes Care Provider Samara costello 04-12-[address] Debra Covington Work Phone: [facility] Payers Date Payer Category Payer Self-pay [id number] 2021 Private Health Insurance [facility] [employer] [id number] 2021-Present [phone] [address] [address] [place] [address] PPO [id number] 2021 Private Health Insurance [facility] [employer] [id number] 2021-Present [phone] [address] [place] [address] HMO [id number] 2021 Unknown [id number] 2015 Unknown [id number] Unknown [id number] Unknown [id number] Unknown [id number] Social History Date Type Detail Facility Start: 12-03-2016 End: 08-26-2023 Tobacco smoking status NHIS Never smoked tobacco [facility] Work Phone: Start: 12-03-2016 End: 01-06-2022 Tobacco use and exposure Former smokeless tobacco user [facility] Work Phone: End: 01-07-2016 History of tobacco use User of smokeless tobacco [facility] Work Phone: Start: 10-20-2021 End: 01-06-2022 Alcohol intake Current non-drinker of alcohol (finding) [facility] Start: 1965 Sex Assigned At Not on file [facility] Start: 12-27-2021 End: 01-20-2022 Exposure to SARS-CoV-2 (event) Not sure [facility] Start: 12-24-2021 End: 08-26-2023 Tobacco smoking status NHIS Unknown if ever smoked [facility] Start: 04-15-2016 None [facility] Start: 04-15-2016 Spouse/ Signif icant Other [facility] Start: 04-15-2016 Chew [facility] Start: 1965 Sex Assigned At Male [facility] Medical Equipment Procedure Code Equipment Code Equipment Origin al Text Equipment Identifier Dates Blood Sugar Diagnostic (Onetouch Ultra Blue Test Strip) strip Start: 12-12-2019 Blood Sugar Diagnostic (Onetouch Ultra Blue Test Strip) strip Start: 02-04-2020 Pen Needle, Diab etic (Comfort Ez Pen Anza) 31 gauge x 5/16 needle Start: 08-04-2020 Blood Sugar Diagnostic (Onetouch Ultra Blue Test Strip) strip Start: 02-04-2020 End: 02-04-2020 Blood Sugar Diagnostic (Onetouch Ultra Blue Test Strip) strip Start: 12-12-2019 Blood Sugar Diagnostic (Onetouch Ultra Blue Test Strip) strip Start: 02-04-2020 Pen Needle, Diab etic (Comfort Ez Pen Anza) 31 gauge x 5/16 needle Start: 08-04-2020 Blood Sugar Diagnostic (Onetouch Ultra Blue Test Strip) strip Start: 02-04-2020 End: 02-04-2020 Blood Sugar Diagnostic (Onetouch Ultra Blue Test Strip) strip Start: 12-12-2019 Blood Sugar Diagnostic (Onetouch Ultra Blue Test Strip) strip Start: 02-04-2020 Pen Needle, Diab etic (Comfort Ez Pen Anza) 31 gauge x 5/16 needle Start: 08-04-2020 Blood Sugar Diagnostic (Onetouch Ultra Blue Test Strip) strip Start: 02-04-2020 End: 02-04-2020 Blood Sugar Diagnostic (Onetouch Ultra Blue Test Strip) strip Start: 12-12-2019 Blood Sugar Diagnostic (Onetouch Ultra Blue Test Strip) strip Start: 02-04-2020 Pen Needle, Diab etic (Comfort Ez Pen Anza) 31 gauge x 5/16 needle Start: 08-04-2020 Blood Sugar Diagnostic (Onetouch Ultra Blue Test Strip) strip Start: 02-04-2020 End: 02-04-2020 Blood Sugar Diagnostic (Onetouch Ultra Blue Test Strip) strip Start: 12-12-2019 Blood Sugar Diagnostic (Onetouch Ultra Blue Test Strip) strip Start: 02-04-2020 Pen Needle, Diab etic (Comfort Ez Pen Anza) 31 gauge x 5/16 needle Start: 08-04-2020 Blood Sugar Diagnostic (Onetouch Ultra Blue Test Strip) strip Start: 02-04-2020 End: 02-04-2020 Clinical Notes 11-12-2021 to 01-27-2022 Telephone Encounter - Tosin Cortez PA-C - 01/27/2022 9:25 AM EDTTelephone Encounter - Miriam Tovar - 01/26/2022 5:14 PM EDTJelani Jamison MD - 01/20/2022 8:15 AM EDTPatient Instructions Note Date & Type Note Facility 01-27-2022 Miscellaneous Notes Formattin g of this note might be different from the original. This is correct. The patient had a normal colonoscopy with no biopsies taken, so no post-op visit required. He does however need Health Maintenance and surgical history updated in [facility], and a recall letter placed for 10 year repeat colonoscopy. Encounter forwarded to [facility] to update chart Pt canceled post op appointment with Tosin Cortez. He thought that Dr. Jamison had given him all the information after the colonoscopy so he did not need it. Let him know if he should r/s. documented in this encounter [facility] 01-20-2022 History and physi mejia note Images from the original note were not included. HISTORY AND PHYSICAL David Baez 1965 REFERRING PHYSICIAN: Debra Covington MD CHIEF [...] entered by the nurse and reviewed by me Nursing Notes: Norma LaytonCESAR 10/20/2021 10:14 AM Signed REVIEW OF SYSTEMS: [...] Jelani Jamison III, MD PATIENT NAME: David Baez DATE: January 20, 2022 TIME: 7:58 AM documented in this encounter [facility] 01-07-2022 Instructions Jelani Jamison MD [...] If you do not have a responsible transfer driver (family member or friend) with you [...] exam. 3 06/2019 [facility] [facility] 01-07-2022 Miscellaneous Notes prep sent Patient scheduled for colonoscopy with Shaheen in [place] on 01/20 Patients prep Golytely was never sent to his pharmacy on file. Can we please send patients prep over to [facility] in [place] Please and thank you Rachael documented in this encounter [facility] 01-06-2022 History and physi mejia note HISTORY AND PHYSICAL EXAMINATION SERVICE DATE: 01/06/2022 SERVICE TIME: 11:22 AM PRIMARY CARE PHYSICIAN: Debra Covington MD REASON FOR VISIT: David Baez is a 56 year old male who [...] Imm Admin: COVID-19 vaccine, age 12+ yr ([employer] [facility]) 10/23/2020 Imm Admin: COVID-19 vaccine, age 12+ yr ([employer] [facility]) 09/29/2020 Imm Admin: COVID-19 vaccine, age 12+ yr ([employer] [facility]) CHIEF COMPLAINT: Pre-Op Exam HPI: 56 year [...] fevers. Neurological: No history of TIA's, stroke, DELIVERY DIRECTOR tumor, impaired sensorium, hemiplegia, paraplegia or quadraplegia. No neurological symptoms or problems. Respiratory: Positive for: obstructive sleep apnea (using CPAP). Negative for: asthma, bronchitis, COPD, current cough, dyspnea, home oxygen, orthopnea and pneumonia within 6 weeks. Cardiovascular: Positive for: hyperlipidemia (on Rx) and hypertension (on Rx) Negative for: arrhythmia, atrial fibrillation, CAD, chest pain, CHF, DVT/PE, recent MA and murmur/valvular heart disease. GI: See HPI. [...] or any previous visit (from the past 79855 hour(s)). Assessment Diabetes (HCC) Assessment: Last HbA1C [...] STOP-Bang Score: STOP-Bang Score: (ALEXANDER using CPAP) [id number] Score: Age: <65 Sex: male CHF history: No Hypertension history: Yes Stroke/TIA/thromboembolism history: No Vascular disease history: No Diabetes history: Yes [id number] Score: 2 ASA Class: 3 ANESTHESIA FINDINGS: [...] SIGNATURE: Ellyn Mckinley APRN.CNP PATIENT NAME: David Baez DATE: January 06, 2022 TIME: 11:22 AM PAGER/CONTACT #: documented in this encounter [facility] 01-06-2022 Instructions Ellyn Mckinley APRN.CNP - 01/06/2022 11:21 AM EDT PATIENT PREOPERATIVE INSTRUCTIONS Jelani Jamison MD has scheduled you for your procedure at this surgery center: [facility]: [phone] -- [address] [address]. Please read below carefully for your personalized [...] Procedures: - YOU MUST HAVE A RESPONSIBLE ELEVATOR RUNNER TAKE YOU HOME. A PUBLIC SERVICES LIBRARIAN OR RN [facility] CANNOT BE MADE A RESPONSIBLE ELEVATOR RUNNER. - We recommend that a responsible person [...] Advance Directive, please fax a copy to [phone] or email to for it to be [...] Ellyn Mckinley APRN.CNP documented in this encounter [facility] 11-12-2021 Miscellaneous Notes Patient's procedure was just added on for 01/20/2022. Called patient and spouse answered and per spouse patient not home. Per spouse call another number provided by spouse. Called that number and call went straight to voicemail and it's full. Unable to leave a message. [employer] message sent to patient as well. Please have patient call back at [phone]. Thank you! Luz Elena Lebron 01-20-2022 COLON SAVAGE documented in this encounter [facility] Evaluation note Diagnosis Preoperative examination- Primary Preoperative examination, unspecified Colon cancer screening Special screening for malignant neoplasms, colon Type 2 diabetes mellitus with other specified complication, without long-term current use of insulin (HCC) Abnormal kidney function Unspecified disorder of kidney and ureter ALEXANDER (obstructive sleep apnea) Obstructive sleep apnea (adult) (pediatric) Hyperlipidemia, unspecified hyperlipidemia type Hypertension, unspecified type Morbidly obese (HCC) Morbid obesity [facility] [place] [facility] Diagnosis Screening for colon cancer Special screening for malignant neoplasms, colon documented in this encounter [facility] note* Diagnosis Onset Date Resolution Status Diabetes chronic Hypertension chronic Mixed hyperlipidemia chronic Morbid obesity with BMI of 40.0-44.9, adult [facility] Work Phone: evaluation note* Diagnosis Screening for colon cancer- Primary Special screening for malignant neoplasms, colon documented in this encounter [facility] note* Diagnosis Screening for colon cancer- Primary Special screening for malignant neoplasms, colon documented in this encounter [facility] note* Diagnosis Onset Date Resolution Status Diabetes chronic Morbid obesity with BMI of 40.0-44.9, adult chronic Diabetes chronic Hypertension chronic Morbid obesity with BMI of 40.0-44.9, adult [facility] Work Phone: evaluation note* Diagnosis Onset Date Resolution Status Diabetes chronic Hypertension chronic Mixed hyperlipidemia chronic Obesity [facility] Work Phone: evaluation noteNo assessment information available [facility] Work Phone: Reason for referral (narrative)* Outpatient Procedure (Routine) - Closed Specialty Diagnoses / Procedures Referred By Lars kimbrough Referred To Contact Diagnoses Screening for colon cancer Procedures COLONOSCOPY SCREENING COLONOSCOPY FLX DX W/COLLJ SPEC WHEN Jelani Carter MD [address] [place] [address] [facility] [address] [place] [id number] Referral ID Status Reason Start Date Expiration Date V isits Requested Visits Authorized [id number] Closed Auto-Generate d Referral 01/20/2022 04/20/2022 1 1 [facility] Outpatient Procedure (Routine) - Closed Specialty Diagnoses / Procedures Referred By Lars kimbrough Referred To Contact Diagnoses Screening for colon cancer Procedures COLONOSCOPY SCREENING COLONOSCOPY FLX DX W/COLLJ SPEC WHEN Jelani Carter MD [address] [place] [address] [facility] [address] [place] [address] Referral ID Status Reason Start Date Expiration Date V isits Requested Visits Authorized [id number] Closed Auto-Generate d Referral 01/20/2022 04/20/2022 1 1 [facility] Outpatient Procedure (Routine) - Pending Review Specialty Diagnoses / Procedures Referred By Contac t Referred To Contact [facility] Diagnoses Screening for colon cancer Procedures COLONOSCOPY DIAGNOSTIC COLONOSCOPY FLX DX W/COLLJ SPEC WHEN Jelani Carter MD [address] [place] [address] [facility] [address] [place] [address] Referral ID Status Reason Start Date Expiration Date Visits Requested Visits Authorized [id number] Pending Review Auto-Generat ed Referral 01/07/2022 01/07/2023 1 1 [facility] for referral (narrative)No reason for referral [facility] Work Phone: Reuhqd for visit Narrative* Outpatient Procedure (Routine) - Closed Specialty Diagnoses / Procedures Referred By Contac t Referred To Contact Diagnoses Screening for colon cancer Procedures COLONOSCOPY SCREENING COLONOSCOPY FLX DX W/COLLJ SPEC WHEN Jelani Carter MD [address] [place] [address] [facility] [address] [place] [address] Referral ID Status Reason Start Date Expiration Date V isits Requested Visits Authorized [id number] Closed Auto-Generate d Referral 01/20/2022 04/20/2022 1 1 [facility] Advance Directives No Advanced Directives Records FoundDocuments on File Type Date Recorded Patient Wood Setter Expl anation Advance Directive(s) 12/22/2021 3:59 PM Documents on File Type Date Recorded Patient Wood Setter Expl anation Advance Directive(s) 01/20/2022 6:30 AM Advance Directive(s) 12/22/2021 3:59 PM Advance Directive Response Recorded Date/ Time Advance Directives Yes April 15, 2016 10:41am Living Will Yes April 15 10:41am Power of Behavioral School Counselors Yes April 15 016 10:41am Advance Directive Response Recorded Date/ Time Advance Directives Yes April 15, 2016 9:41am Living Will Yes April 15 9:41am Power of Behavioral School Counselors Yes April 15 9:41am Advance Directive Response Recorded Date/ Time Advance Directives Yes April 15, 2016 10:41am Medications Administered Section Inactive Administered Medications - up to 3 most recent administrations Medication Order MAR Action Action Date Dose Rate Site lactated ringers iv infusion 30 mL/hr, INTRAVENOUS, CONTINUOUS, Starting on Tue01/20/22 at 0730, Until Tue01/20/22 at 0830, Preprocedure New Bag/Syringe/Bottle 01/20/2022 7:30 AM EDT 30 mL/hr 30 mL/hr Summary Purpose Family History No Family History Records Found Relationship Condition Age at Onset Recorded Date/T van father Coronary artery disease Unknown Myocardial infarction 40 mother Malignant neoplasm of breast Unknown Cardiac disease Unknown brother Hypertension Unknown Chief Complaint and Reason for Visit Chief Complaint RS FROM NOVEMBER APPT. 3 M FU Reason for Visit Diabetes Hypertension Mixed hyperlipidemia Morbid obesity with BMI of 40.0-44.9, adult Chief Complaint 4 M FU, Aware of loc ation change 1 M FU Reason for Visit Diabetes Morbid obesity with BMI of 40.0-44.9, adult Diabetes Hypertension Morbid obesity with BMI of 40.0-44.9, adult Chief Complaint 3 M FU Reason for Visit Diabetes Hypertension Mixed hyperlipidemia Morbid obesity with BMI of 40.0-44.9, adult Chief Complaint 4 M FU Reason for Visit Diabetes Hypertension Mixed hyperlipidemia Obesity Chief Complaint Admit Date 6 M FU February 12, 2025 1:2 7pm Additional Source Comments Source Comments (unrecognize d section and content) In the event this informatio n is protected by the Federal Confidentiality of Alcohol and Drug Abuse Patient Records regulations: The Federal rules restrict any use of the information to criminally investigate or prosecute any alcohol or drug abuse patient.[facility] the event this information is protected by the Federal Confidentiality of Alcohol and Drug Abuse Patient Records regulations: The Federal rules restrict any use of the information to criminally investigate or prosecute any alcohol or drug abuse patient.[facility] the event this information is protected by the Federal Confidentiality of Alcohol and Drug Abuse Patient Records regulations: The Federal rules restrict any use of the information to criminally investigate or prosecute any alcohol or drug abuse patient.[facility] the event this information is protected by the Federal Confidentiality of Alcohol and Drug Abuse Patient Records regulations: The Federal rules restrict any use of the information to criminally investigate or prosecute any alcohol or drug abuse patient.[facility] the event this information is protected by the Federal Confidentiality of Alcohol and Drug Abuse Patient Records regulations: The Federal rules restrict any use of the information to criminally investigate or prosecute any alcohol or drug abuse patient.[facility] Reason for Visit (unrecogniz ed section and content) Reason Comments Consult Specialty Diagnoses / Procedures Referred By Contac t Referred To Contact ANESTHESIOLOGY Diagnoses COLONOSCOPY SCREENING [78994] Procedures COLONOSCOPY SCREENING [[id number]] Jelani Jamison MD [address] [place] [address] [address] [address] [place] [address] Referral ID Status Reason Start Date Expiration Date Visits Requested Visits Authorized [id number] Pending Review OON/Self Pay Override 11/16/2021 02/14/2022 1 1 Reason Comments 01-20-2022 COLON SAVGAE Reason Comments 01/20 colon savage Reason Comments Patient Question Care Teams (unrecognized sec tion and content) Pouch Maker Relationship Specialty Start Date End Date Debra Covington PCP - General Family Practice 11/29/16 Pouch Maker Relationship Specialty Start Date End Date Debra Covington PCP - General Family Practice 11/29/16 Pouch Maker Relationship Specialty Start Date End Date Debra Covington PCP - General Family Practice 11/29/16 Pouch Maker Relationship Specialty Start Date End Date Debra Covington PCP - General Family Practice 11/29/16 Team Status: Active Member Role Status Dates Dr. Debra Covington MD Family Provider Active Dr. Debra Covington MD Primary Care Provider Active Team Status: Inactive Member Role Status Dates Dr. Debra Covington MD Primary Care Provider, [facility] Provider Active Dr. Rock Haddad MD Attending Provider Active Team Status: Inactive Member Role Status Dates Dr. Debra Covington MD Primary Care Provider, Referrin g Provider Active JIMENEZ Tatum Attending Provider Active Team Status: Inactive Member Role Status Dates Dr. Debra Covington MD Primary Care Provider, Attendin g Provider Active Pouch Maker Relationship Specialty Start Date End Date Debra Covington PCP - General Family Medicine 11/29/16 Team Status: Inactive Member Role Status Dates Dr. Debra Covington MD Primary Care Provider Active Dr. Rock Haddad MD Attending Provider, Referring Provi tianna Active Team Status: Active Member Role/Relationship Status Dates Dr. Debra Covington MD Family Provider Active Dr. Sandeep Desai MD Primary Care Provider Active Team Status: Inactive Member Role/Relationship Status Dates Dr. Debra Covington MD Referring Provider Active Start: February 12, 2025 End: February 12, 2025 Dr. Rock Haddad MD Attending Provider Active Sta rt: February 12, 2025 End: February 12, 2025 Dr. Sandeep Desai MD Primary Care Provider Active Start: February 12, 2025 End: February 12, 2025 (unrecognized sect ion and content) No Status Records FoundNo Status Records FoundNo Status Records Found INFORMATION SOURCE (unrecogn ized section and content) DATE CREATED AUTHOR 01/26/2022 [facility] DATE CREATED AUTHOR AUTHOR'S ORGANIZ ATION 12/25/2022 [facility] DATE CREATED AUTHOR AUTHOR'S ORGANIZ ATION 02/13/2025 [facility] Goals (unrecognized section and content) Goals may be documented in a n alternate sectionGoals may be documented in an alternate sectionGoals may be documented in an alternate sectionGoals may be documented in an alternate sectionGoals may be documented in an alternate section FOR RECORDS PERTAINING TO PATIENTS WHO ARE [...] BE BASED ON THE PRIMARY CLINICAL RECORDS. [facility]. provides no warranty or guarantee of the accuracy or completeness of information in this document.
[2025-02-15 17:48] LABS: Hematocrit 37.7 % (40-54); Hemoglobin 13.1 g/dL (13.0-16.5); Immature Granulocytes Count 0.030 X10^3/uL (0.0-0.0); Mean Corp Hgb Conc 34.7 g/dL (32-36); Mean Corpuscular Volume 94.3 fL (80-94); Mean Platelet Vol. 11.8 fl (6.2-12.0); NRBC Flagged by Analyzer 0 % (0-5); Platelet Count 214 K/mm3 (150-450); RBC Distribution Width CV 12.3 % (11.6-14.6); RBC Distribution Width SD 42.7 fl (35.1-43.9); Red Blood Count 4.00 M/mm3 (4.6-6.2); White Blood Count 7.8 K/mm3 (4.4-11.0)
[2025-02-15 18:13] LABS: Creatinine, Urine (random) 108.00 mg/dL (39.00-259.00); Microalbumin,Random Urine 46.5 mg/L (<20 mg/L)
[2025-02-15 18:30] LABS: AST(SGOT) 20 U/L (<=37); Alanine Aminotransfer ALT/SGPT 20 U/L (<=46); Albumin, Serum 4.4 g/dL (3.4-4.8); Alkaline Phosphatase 103 U/L (40-129); Anion Gap 12 (5-15); BUN 27 mg/dL (4-19); BUN/Creat Ratio 21.2 RATIO (10-20); Calcium,Total 10.1 mg/dL (7.6-11.0); Carbon Dioxide 25.1 mmol/L (21.0-32.0); Chloride 101 mmol/L (98-108); Globulin 2.7 g/dL (2.2-4.2); Glucose 125 mg/dL (70-99); Potassium 4.6 mmol/L (3.3-5.1); Vitamin D,25 Hydroxy 31.2 ng/mL (30-100)
== END | disposition home or self-care (01) ==
LOC: MFPLAB 16:23
PROVIDERS: PCP Family Medicine; Referring Provider Family Medicine; Visit Provider Family Medicine
DX: E11.22 Type 2 diabetes mellitus with diabetic chronic kidney disease (principal); E66.813 Obesity, class 3; N18.31 Chronic kidney disease, stage 3a
CPT/HCPCS: 36415; 80053; 82043; 82306; 82570; 85025